=== PATIENT | female | born 1945 | race Caucasian/White ===

== ENCOUNTER → 2017-07-04 | Day surgery (SDC) | payer OTHER, BC ==
[2017-06-20 14:12] VITALS: Ht 167.6 cm; Wt 134.1 kg
[~2017-07-04] VITALS: Ht 167.6 cm; Wt 134.1 kg
[~2017-07-04] MED LIST: ASPI1TAB2 PO; ATEN-171 PO; CARB25TA12 PO; CHOL1000 PO; CRAN450T3 PO; FLAX100024 PO; LIDOCAINE HCL 2% 2 ML VIAL (20MG/ML) ONE; MULT-506 PO; NUTRIFERON PO; POTA-65 PO; PROPOFOL IV EMULSION 10 MG/ML 20 ML VIAL ONE; SULF500T35 PO; [UNRECOGNIZED DRUG - CODE] PO; [UNRECOGNIZED DRUG - OTHER] PO
--- NOTE | 2017-07-04 12:17 | Endo History and Physical ---
History & Physical Date of Service: July 04, 2017. Chief Complaint: Ulcerative colitis Referring Physician: Dr. Cristina Galvez History of Present Illness For colonoscopy Past Surgical History Hx Cardiac Surgery: No Hx Internal Defibrillator: No Hx Pacemaker: No Hx Abdominal Surgery: Yes (Ovarian Cyst Removal) Hx of Implantable Prosthesis: No Hx Cancer Surgery: Yes (R LUMPECTOMY, BILT MASECTOMY) Hx Thoracic Surgery: No Hx Orthopedic: No Hx Urinary Tract Surgery: No Family History None Social History Smoking Status: Former Smoker Hx Substance Use: No Hx Alcohol Use: No Allergies Coded Allergies: Morphine (Verified Allergy, Severe, ANAPHYLAXIS, 06/20/17) Ibuprofen (Verified Allergy, Intermediate, Triggers Ulcerative Colitis, 06/20/17) Penicillins (Verified Allergy, Intermediate, Rash, 06/20/17) Adhesives (Verified Adverse Reaction, Mild, RASH, 06/20/17) Current Medications Reported Home Medications Medications Dose Route/Sig Max Daily Dose Days Date Category Dose Instructions Vitamin D3 (Cholecalciferol) 1,000 Unit Tab 1 Tab PO DAILY 30 06/20/17 Reported Sinemet 25MG/100MG (Carbidopa/Levodopa) Tab 2 Tab PO TID 06/20/17 Reported Potassium Chloride ER (Potassium Chloride) 20 Meq Tab 1 Tab PO DAILY 06/20/17 Reported [Nutriferon] 2 Cap PO DAILY 06/20/17 Reported Azo-Cranberry (Cranberry (Vaccinium Macrocarp) 450 Mg Tab 1 Tab PO DAILY 12/02/12 Reported Multivitamin (Multivitamins) Tab 1 Tab PO DAILY 12/02/12 Reported Osteo Bi-Flex/5-Loxin Adv (Soonzalct-Rxqrstkvmjj-Rvkjubc) 1 Tab Tab 1 Tab PO DAILY 12/02/12 Reported Flaxseed Oil (Flaxseed (Linseed)) 1,000 Mg Cap 1 Cap PO DAILY 12/02/12 Reported [Immunity Formula] 1 Cap PO DAILY 12/02/12 Reported Salomon Aspirin Ec Low Dose (Aspirin) 81 Mg Tab 1 Tab PO DAILY 12/02/12 Reported Tenoretic 50 Mg/25 Mg (Atenolol/Chlorthalidone) 50 Mg/25 Mg Tab 0.5 Tab PO DAILY 12/02/12 Reported TAKE 1/2 A TAB Sulfazine Ec (Sulfasalazine) 500 Mg Tabdr 500 Mg PO DAILY 12/02/12 Reported Vital Signs Weight (Kilograms): 134.09 Height (Feet): 5 Height (Inches): 6 Date Time Temp Pulse Resp B/P (MAP) Pulse Ox O2 Delivery O2 Flow Rate FiO2 07/04/17 12:14 36.6 89 20 176/87 (116) 96 Room Air Physical Exam General Appearance: + obese Respiratory/Chest: Respiratory effort: no dyspnea Cardiovascular: Heart Auscultation: RRR Abdomen: Inspection & Palpation: soft Assessment and Plan UC for colonoscopy
--- NOTE | 2017-07-04 12:55 | Discharge Instructions ---
Endoscopy Patient Instructions Date / Procedure(s) Performed July 04, 2017. Colonoscopy Allergy Information Coded Allergies: Morphine (Verified Allergy, Severe, ANAPHYLAXIS, 06/20/17) Ibuprofen (Verified Allergy, Intermediate, Triggers Ulcerative Colitis, 06/20/17) Penicillins (Verified Allergy, Intermediate, Rash, 06/20/17) Adhesives (Verified Adverse Reaction, Mild, RASH, 06/20/17) Discharge Date / Findings July 04, 2017. Diverticulosis, hemorrhoids Medication Instructions Stopped Medication(s): Patient was told to stop aspirin, and vitamins and minerals. Restart Stopped Medication(s): resume meds Reported Home Medications Medications Dose Route/Sig Max Daily Dose Days Date Category Dose Instructions Vitamin D3 (Cholecalciferol) 1,000 Unit Tab 1 Tab PO DAILY 30 06/20/17 Reported Sinemet 25MG/100MG (Carbidopa/Levodopa) Tab 2 Tab PO TID 06/20/17 Reported Potassium Chloride ER (Potassium Chloride) 20 Meq Tab 1 Tab PO DAILY 06/20/17 Reported [Nutriferon] 2 Cap PO DAILY 06/20/17 Reported Azo-Cranberry (Cranberry (Vaccinium Macrocarp) 450 Mg Tab 1 Tab PO DAILY 12/02/12 Reported Multivitamin (Multivitamins) Tab 1 Tab PO DAILY 12/02/12 Reported Osteo Bi-Flex/5-Loxin Adv (Tshhykntw-Hmwrzdtptjd-Qzxelry) 1 Tab Tab 1 Tab PO DAILY 12/02/12 Reported Flaxseed Oil (Flaxseed (Linseed)) 1,000 Mg Cap 1 Cap PO DAILY 12/02/12 Reported [Immunity Formula] 1 Cap PO DAILY 12/02/12 Reported Salomon Aspirin Ec Low Dose (Aspirin) 81 Mg Tab 1 Tab PO DAILY 12/02/12 Reported Tenoretic 50 Mg/25 Mg (Atenolol/Chlorthalidone) 50 Mg/25 Mg Tab 0.5 Tab PO DAILY 12/02/12 Reported TAKE 1/2 A TAB Sulfazine Ec (Sulfasalazine) 500 Mg Tabdr 500 Mg PO DAILY 12/02/12 Reported Provider Instructions Activity Restrictions - No exercising or heavy lifting for 24 hours. - Do not drink alcohol the day of the procedure. - Do not drive a car or operate machinery until the day after the procedure. - Do not make any important decisions or sign important papers in 24 hours after the procedure. Following Day: - Return to full activity which may include returning to work/school. Diet Start your diet with liquids and light foods (jello, soup, juice, toast). Then eat your usual diet if not nauseated. Treatment For Common After Affects For mild abdominal pain, bloating, or excessive gas: - Rest - Eat lightly - Lie on right side Follow-Up Information Follow-up with Dr. Cristina Galvez as scheduled Anesthesia Information What You Should Know You have had a procedure that required some medicine to reduce anxiety and discomfort. This treatment is called moderate sedation. After receiving the treatment, you may be sleepy, but you will be able to breathe on your own. The effects of the treatment may last for several hours. Follow these instructions along with Activity/Diet recommendations noted above: * Do NOT do anything where dizziness or clumsiness would be dangerous. * Rest quietly at home today, then you can be up and about tomorrow. * Have a responsible person stay with you the rest of today. * You may have had an I.V. today. If so, you may take the dressing off later today. Recommendations Call your doctor if: * Trouble breathing * Continuous vomiting for more than 24 hours * Temperature above 101 degrees * Severe abdominal pain or bloating * Pain not relieved by pain medicine ordered * There is increased drainage or redness from any incision * A large amount of rectal bleeding greater than 2-3 tablespoons. (If you had a polyp/s removed or have hemorrhoids, a small amount of blood - from the rectum is to be expected.) * You have any unanswered questions or concerns. IN THE EVENT OF A SERIOUS EMERGENCY, GO TO THE NEAREST EMERGENCY ROOM Your discharge instructions were prepared by provider Ian Mccarty. Patient Instructions Signature Page Stephanie Pinzon Patient (or Guardian) Signature/Date: I have read and understand the instructions given to me by my caregivers. Caregiver/RN/Doctor Signature/Date: The above-named patient and/or guardian has received patient instructions on this date. + Original Patient Signature Page (only) stays with chart. Please make copy for patient.
--- NOTE | 2017-07-04 13:00 | GI REPORT ---
Patient Name: Stephanie Pinzon Procedure Date: 07/04/2017 12:14 PM Date of : 1945 Admit Type: Outpatient Age: 72 Gender: Female Attending MD: Ian Mccarty MD Procedure: Colonoscopy Providers: Ian Mccarty MD Referring MD: Cristina Silva Indications: Follow-up of chronic ulcerative pancolitis Medicines: Propofol total dose 550 mg IV, Lidocaine 40 mg IV Complications: No immediate complications. Estimated Blood Loss: Estimated blood loss was minimal. Procedure: Pre-Anesthesia Assessment: - Prior to the procedure, a History and Physical was performed, and patient medications, allergies and sensitivities were reviewed. The patient's tolerance of previous anesthesia was reviewed. - The risks and benefits of the procedure and the sedation options and risks were discussed with the patient. All questions were answered and informed consent was obtained. After I obtained informed consent, the scope was passed under direct vision. Throughout the procedure, the patient's blood pressure, pulse, and oxygen saturations were monitored continuously. The scope was introduced through the anus and advanced to the cecum, identified by appendiceal orifice and ileocecal valve. The colonoscopy was performed without difficulty. The patient tolerated the procedure well. The quality of the bowel preparation was good. Findings: Multiple diverticula were found in the entire colon. The cecum appeared normal. Biopsies were taken with a cold forceps for histology. The ascending colon appeared normal. Biopsies were taken with a cold forceps for histology. The hepatic flexure appeared normal. Biopsies were taken with a cold forceps for histology. The transverse colon appeared normal. Biopsies were taken with a cold forceps for histology. The splenic flexure appeared normal. Biopsies were taken with a cold forceps for histology. The descending colon appeared normal. Biopsies were taken with a cold forceps for histology. The sigmoid colon appeared normal. Biopsies were taken with a cold forceps for histology. The rectum appeared normal. Biopsies were taken with a cold forceps for histology. External hemorrhoids were found during perianal exam. The hemorrhoids were moderate. Impression: - Diverticulosis in the entire examined colon. - The cecum is normal. Biopsied. - The ascending colon is normal. Biopsied. - The hepatic flexure is normal. Biopsied. - The transverse colon is normal. Biopsied. - The splenic flexure is normal. Biopsied. - The descending colon is normal. Biopsied. - The sigmoid colon is normal. Biopsied. - The rectum is normal. Biopsied. - External hemorrhoids. Recommendation: - Discharge patient to home (ambulatory). - Continue present medications. - Await pathology results. - Return to primary care physician PRN. Ian Mccarty M.D. Ian Mccarty MD 07/04/2017 1:00:21 PM This report has been signed electronically. Note Initiated On: 07/04/2017 12:14 PM Number of Addenda: 0 I attest to the content of the Intraoperative Record and orders documented therein, exceptions below {[id number]}
[2017-07-04 13:28] VITALS: BP 167/88; PULSE 77; O2SAT 97
--- NOTE | 2017-07-04 13:38 | Anesthesiology Progress Note ---
Anesthesia Post Op Note Date & Time July 04, 2017 at 13:38 Vital Signs Pain Intensity: 0 Vital Signs Past 12 Hours Date Time Temp Pulse Resp B/P (MAP) Pulse Ox O2 Delivery O2 Flow Rate FiO2 07/04/17 13:28 77 20 167/88 (114) 97 Room Air 07/04/17 13:13 67 20 147/88 (107) 98 Room Air 07/04/17 12:58 36.7 66 16 155/77 (103) 98 Room Air 07/04/17 12:14 36.6 89 20 176/87 (116) 96 Room Air Notes Mental Status: alert / awake / arousable, participated in evaluation Pt Amnestic to Procedure: Yes Nausea / Vomiting: adequately controlled Pain: adequately controlled Airway Patency, RR, SpO2: stable & adequate BP & HR: stable & adequate Hydration State: stable & adequate Anesthetic Complications: no major complications apparent
== END | disposition home or self-care (01) ==
LOC: C.GI 11:45
PROVIDERS: ATTEND Internal Medicine Gastroenterology
DX: K51.00 Ulcerative (chronic) pancolitis without complications (principal); K57.30 Diverticulosis of large intestine without perforation or abscess without bleeding; I10 Essential (primary) hypertension; G20 Parkinson's disease; Z88.0 Allergy status to penicillin; Z88.5 Allergy status to narcotic agent; Z88.6 Allergy status to analgesic agent; Z87.891 Personal history of nicotine dependence

== ENCOUNTER 2021-03-11 00:58 | Observation (INO) ==
--- NOTE | 2021-03-11 01:14 | Emergency Department Note ---
Impression & Plan Acute GI bleeding Admit to the [facility] service ED Provider Note NAME: AJ LEE AGE: 75 SEX: F ARRIVES VIA: Ambulance INFORMANT: Patient ED PROVIDER(S): Janet Child DO CHIEF COMPLAINT: GI bleeding PLAN: Disposition: Admit to the [facility] Condition: Guarded MEDICAL DECISION MAKING: This is a 75-year-old female patient who presents to the emergency department with an urgency to have a bowel movement and passing dark blood clots per rectum. Patient has a history of colitis but not such significant GI bleeding. The patient had additional episodes of both bright red blood per rectum as well as melena. She also passed clots. She remains hemodynamically stable. Her hemoglobin is stable at this time. CT scan shows evidence of both colitis and diverticulitis according to [employer]. I discussed the case with the [facility] service and they will evaluate for further management. Triage Nursing notes reviewed and agree with them. Vital Signs: reviewed and remarkable for hypertension Differential diagnosis: Upper GI bleed, colitis, diverticulitis, anemia Diagnostics interpreted by me: ECG: Normal sinus rhythm at a rate of 82 with a first-degree AV block. This has a poor baseline. However, there is no ST segment elevation or signs of ischemia. There is no ectopy. Cardiac Monitoring: Normal sinus rhythm at a rate of 79 Laboratory studies: See below Imaging studies: As per stat rad CT Abdomen/Pelvis: There is mild colonic wall thickening involving a loop of sigmoid colon in the left lower quadrant with mild engorgement of the adjacent mesenteric vessels, raising the possibility of early colitis versus diverticulitis. Numerous colonic diverticula are visualized throughout the colon. No drainable fluid collection or free air visualized in the abdomen or pelvis. Unremarkable appendix. Bilateral renal cysts. No hydronephrosis. The liver, spleen, adrenal glands and biliary tree are grossly unremarkable. Mild diffuse pancreatic atrophy HPI: 75/F arrives for evaluation of GI bleed. Patient presents to the emergency department with weakness and rectal bleeding. Around 11:30 PM this evening, the patient had urgency to have a bowel movement. She states that she passed large dark-colored blood clots per rectum with a small amount of stool. She states that she has a history of colitis but typically would have diarrheal bowel movements that were streaked with blood but has not had that happen in some time. Patient had a colonoscopy 3 years ago which showed evidence of colitis and diverticulosis. ROS: See above HPI for pertinent positives & negatives. A total of 10 systems reviewed and were otherwise negative. PAST MEDICAL HISTORY:Hypertension, Parkinson's disease, osteoarthritis, breast cancer, colitis PAST SURGICAL HISTORY:See Below FAMILY HISTORY:See Below SOCIAL HISTORY:Patient lives with her . She does not smoke HOME MEDICATIONS:See list ALLERGIES:See list VITALS:See Below PHYSICAL EXAMINATION: HEENT: Head - normocephalic and atraumatic.Pupils are equal, round, and reactive to light. Extraocular eye muscles are intact, and sclera are anicteric. Nose - moist nasal mucosa without discharge. Mouth - moist buccal mucosa. Oropharynx is nonerythematous and there is no tonsillar exudate or edema noted. Neck: Supple; no JVD or cervical lymphadenopathy Heart: Regular rate and rhythm. There is a normal S1 and S2 with no murmurs, clicks, or gallops appreciated. Lungs: Clear to auscultation bilaterally with no wheezes, rales, or rhonchi. Abdomen: Soft, completely nontender, mildly distended, with good bowel sounds. There are no palpable pulsatile masses or hepatosplenomegaly. There is no guarding, rigidity, or rebound noted. Extremities: No evidence of cyanosis, clubbing, or edema. There are easily palpable peripheral pulses. Skin: Pale, warm and dry with good turgor and no rashes. ED COURSE: Times/Reassessments: 0100: The patient was evaluated in room B6. A complete history and physical was performed. Laboratory studies were drawn as above. An order was placed for continuous cardiac monitoring. The patient was in a normal sinus rhythm at a rate of 79. She was slightly hypertensive. The patient was typed and screened. She went for CT scan of the abdomen/pelvis as described above. Patient had a significant bowel movement with moderate to significant amount of melena. Patient's vitals remained stable. COVID testing was obtained and was negative. [facility] and they will evaluate for further management. Janet Child DO Past Med/Surg History Surgical History History of mastectomy Family History Father Mother Diverticulitis Heart problem Brother COPD (chronic obstructive pulmonary disease) Heart failure Rheumatoid arthritis Sister Arthritis History of hysterectomy Grandmother (Paternal) Diabetes Grandmother (Maternal) Cancer Grandfather (Maternal) Cancer Social History Smoking Status: Former smoker Tobacco Type: Cigarettes Feels Safe at Home: Yes Allergies Allergies Allergy/AdvReac Type Severity Reaction Status Date / Time morphine Allergy Severe ANAPHYLAXIS Verified 03/11/21 01:33 ibuprofen Allergy Intermediate Triggers Verified 03/11/21 01:33 Ulcerative Colitis Penicillins Allergy Intermediate Rash Verified 03/11/21 01:33 adhesive AdvReac Mild RASH Verified 03/11/21 01:33 Home Meds Home Medications Medication Instructions Recorded Confirmed flaxseed oil 1,000 mg capsule 1,000 mg PO DAILY 01/22/19 03/11/21 multivitamin with minerals 1 tab PO DAILY 01/22/19 03/11/21 (Multiple Vitamin-Minerals) sulfasalazine 500 mg tablet 500 mg PO DAILY 01/22/19 03/11/21 aspirin 81 mg chewable tablet 81 mg PO DAILY 03/11/21 03/11/21 atenolol 50 mg tablet 50 mg PO DAILY 03/11/21 03/11/21 carbidopa 25 mg-levodopa 100 mg 2 tab PO AC 03/11/21 03/11/21 tablet cranberry 500 mg capsule 500 mg PO DAILY 03/11/21 03/11/21 glucosamine-chondroitin 250 mg-200 1 tab PO DAILY 03/11/21 03/11/21 mg tablet (Osteo Bi-Flex) potassium chloride 10 mEq 10 meq PO BID 03/11/21 03/11/21 capsule,extended release Results & Data (ED) Vital Signs Vital Signs - 24 hr 03/11/21 01:06 03/11/21 01:25 03/11/21 02:10 Temperature 37.8 C H Temperature Source Oral Pulse Rate 82 79 Pulse Rate [Apical] 86 Pulse Rhythm [Apical] Pulse Strength [Apical] Respiratory Rate 21 24 Respiratory Effort / Characteristics Non-Labored Respiratory Depth Normal Respiratory Pattern Blood Pressure 201/128 H Blood Pressure [Left Arm] 191/98 H Blood Pressure Mean 152 Blood Pressure Mean [Left Arm] 129 Blood Pressure Position [Left Arm] Pulse Oximetry 95 95 Oxygen Delivery Method Room Air Room Air Sepsis Recent Fever Within 48 Hours Yes Sepsis New/Unexplained Change in Mental Status No Sepsis Action Taken by Nursing No Action Required 03/11/21 04:00 Temperature Temperature Source Pulse Rate Pulse Rate [Apical] 72 Pulse Rhythm [Apical] Regular Pulse Strength [Apical] Normal Respiratory Rate 16 Respiratory Effort / Characteristics Non-Labored Spontaneous Respiratory Depth Normal Respiratory Pattern Regular Blood Pressure Blood Pressure [Left Arm] 158/103 H Blood Pressure Mean Blood Pressure Mean [Left Arm] 121 Blood Pressure Position [Left Arm] Semi-fowlers Pulse Oximetry 96 Oxygen Delivery Method Room Air Sepsis Recent Fever Within 48 Hours Sepsis New/Unexplained Change in Mental Status Sepsis Action Taken by Nursing Laboratory Data Result diagrams: 03/11/21 04:24 03/11/21 01:00 Lab Results 03/11/21 03/11/21 03/11/21 Range/Units 01:00 01:00 01:00 WBC 9.77 (4.8-10.8) K/uL RBC 4.34 (4.2-5.4) M/uL Hgb 12.8 (12.0-16.0) g/dL Hct 40.0 (37-47) % MCV 92.2 (80-100) fL MCH 29.5 (25-34) pg MCHC 32.0 (32-36) g/dL RDW Std Deviation 50.1 H (36.4-46.3) fL RDW Coeff of Laith 14.7 H (11.5-14.5) % Plt Count 183 (130-400) K/uL MPV 11.2 H (7.4-10.4) fL Immature Gran % (Auto) 0.3 % Neut % (Auto) 58.6 % Lymph % (Auto) 31.4 % Boyd % (Auto) 8.0 % Eos % (Auto) 1.4 % Baso % (Auto) 0.3 % Neut # (Auto) 5.72 (1.4-6.5) K/uL Lymph # (Auto) 3.07 (1.2-3.4) K/uL Boyd # (Auto) 0.78 H (0.11-0.59) K/uL Eos # (Auto) 0.14 (0-0.5) K/uL Baso # (Auto) 0.03 (0-0.2) K/uL Immature Gran # (Auto) 0.03 H (0.00-0.02) K/uL PT 9.8 (9.0-12.0) Seconds INR 1.0 (0.9-1.1) APTT 27.3 (21.0-31.0) Seconds PTT Ratio 1.0 Sodium 141 (136-145) mmol/L Potassium 3.7 (3.5-5.1) mmol/L Chloride 106 (98-107) mmol/L Carbon Dioxide 28 (21-32) mmol/L Anion Gap 7 (3-11) BUN 18 (6-23) mg/dl Creatinine 0.63 (0.6-1.2) mg/dl Est Cr Clr Drug Dosing 102.9 ml/min Est GFR ( Amer) 103.1 ml/min Est GFR (Non-Af Amer) 89.0 ml/min BUN/Creatinine Ratio 28.6 H (10-20) Glucose 117 H (70-99(Fasting)) mg/dl Calcium 9.0 (8.5-10.1) mg/dl Total Bilirubin 0.4 (0.2-1.0) mg/dl AST 14 (13-39) U/L ALT 4 L (7-52) U/L Alkaline Phosphatase 78 (34-104) U/L Total Protein 7.1 (6.0-8.3) gm/dl Albumin 3.9 (3.4-5.0) gm/dl Globulin 3.2 (2.5-4.0) gm/dl Albumin/Globulin Ratio 1.2 (0.9-2) SARS-CoV-2, RNA, NAAT (NEGATIVE) Blood Type Antibody Screen 03/11/21 03/11/21 03/11/21 Range/Units 02:11 02:12 04:24 WBC (4.8-10.8) K/uL RBC (4.2-5.4) M/uL Hgb 12.0 (12.0-16.0) g/dL Hct 37.4 (37-47) % MCV (80-100) fL MCH (25-34) pg MCHC (32-36) g/dL RDW Std Deviation (36.4-46.3) fL RDW Coeff of Laith (11.5-14.5) % Plt Count (130-400) K/uL MPV (7.4-10.4) fL Immature Gran % (Auto) % Neut % (Auto) % Lymph % (Auto) % Boyd % (Auto) % Eos % (Auto) % Baso % (Auto) % Neut # (Auto) (1.4-6.5) K/uL Lymph # (Auto) (1.2-3.4) K/uL Boyd # (Auto) (0.11-0.59) K/uL Eos # (Auto) (0-0.5) K/uL Baso # (Auto) (0-0.2) K/uL Immature Gran # (Auto) (0.00-0.02) K/uL PT (9.0-12.0) Seconds INR (0.9-1.1) APTT (21.0-31.0) Seconds PTT Ratio Sodium (136-145) mmol/L Potassium (3.5-5.1) mmol/L Chloride (98-107) mmol/L Carbon Dioxide (21-32) mmol/L Anion Gap (3-11) BUN (6-23) mg/dl Creatinine (0.6-1.2) mg/dl Est Cr Clr Drug Dosing ml/min Est GFR ( Amer) ml/min Est GFR (Non-Af Amer) ml/min BUN/Creatinine Ratio (10-20) Glucose (70-99(Fasting)) mg/dl Calcium (8.5-10.1) mg/dl Total Bilirubin (0.2-1.0) mg/dl AST (13-39) U/L ALT (7-52) U/L Alkaline Phosphatase (34-104) U/L Total Protein (6.0-8.3) gm/dl Albumin (3.4-5.0) gm/dl Globulin (2.5-4.0) gm/dl Albumin/Globulin Ratio (0.9-2) SARS-CoV-2, RNA, NAAT NEGATIVE (NEGATIVE) Blood Type O Negative Antibody Screen NEGATIVE Administered Medications Ciprofloxacin (Cipro / D5w) 400 mg in 200 mls @ 100 mls/hr IV Q12H [facility]; Protocol Stop: 03/21/21 03:40 Last Admin: 03/11/21 03:49 Dose: 100 mls/hr Documented by: [id number] Sodium Chloride (Nss 1000ml) 1,000 mls @ 999 mls/hr IV .Q1H1M ONE Stop: 03/11/21 04:59 Last Admin: 03/11/21 04:13 Dose: 999 mls/hr Documented by: [id number] Discontinued Medications Ioversol (Optiray 320 100ml) 96 ml IV ONCE ONE Stop: 03/11/21 02:10 Last Admin: 03/11/21 02:10 Dose: 96 ml Documented by: [id number] Discharge Plan Visit Data Chief Complaint: Rectal Bleed Stated Complaint: BLOOD IN STOOL ED Provider: Janet Chlid Discharge Problem: Acute GI bleeding Forms Stand Alone Forms: [facility] [place] Lat49 Prescriptions Prescriptions: No Action flaxseed oil 1,000 mg capsule 1,000 mg PO DAILY RF: 0 multivitamin with minerals [Multiple Vitamin-Minerals] tablet 1 tab PO DAILY RF: 0 sulfasalazine 500 mg tablet 500 mg PO DAILY RF: 0 aspirin 81 mg Tablet,Chewable 81 mg PO DAILY RF: 0 carbidopa-levodopa 25-100 mg tablet 2 tab PO AC RF: 0 potassium chloride 10 mEq capsule, extended release 10 meq PO BID RF: 0 atenolol 50 mg tablet 50 mg PO DAILY RF: 0 cranberry 500 mg Capsule 500 mg PO DAILY RF: 0 glucosamine-chondroitin [Osteo Bi-Flex] 250-200 mg Tablet 1 tab PO DAILY RF: 0 Referrals Referrals: Cristina Silva MD [Primary Care Provider] -
[2021-03-11 01:25] LABS: Basophils # (auto) 0.03 K/uL (0-0.2); Basophils % (auto) 0.3 %; Eosinophils # (auto) 0.14 K/uL (0-0.5); Eosinophils % (auto) 1.4 %; Hemoglobin 12.8 g/dL (12.0-16.0); Immature Granulocytes # (auto) 0.03 K/uL (0.00-0.02); Immature Granulocytes % (auto) 0.3 %; Lymphocytes # (auto) 3.07 K/uL (1.2-3.4); Lymphocytes % (auto) 31.4 %; Mean Corpuscular Hemoglobin 29.5 pg (25-34); Mean Corpuscular Volume 92.2 fL (80-100); Mean Platelet Volume 11.2 fL (7.4-10.4); Monocytes # (auto) 0.78 K/uL (0.11-0.59); Neutrophils # (auto) 5.72 K/uL (1.4-6.5); Neutrophils % (auto) 58.6 %; Platelet Count 183 K/uL (130-400); RDW Coefficient of Variation 14.7 % (11.5-14.5); RDW Standard Deviation 50.1 fL (36.4-46.3); Red Blood Count 4.34 M/uL (4.2-5.4); White Blood Count 9.77 K/uL (4.8-10.8)
[2021-03-11 01:35] LABS: Albumin Globulin Ratio 1.2 (0.9-2); Albumin Level 3.9 gm/dl (3.4-5.0); BUN Creatinine Ratio 28.6 (10-20); Bilirubin,Total 0.4 mg/dl (0.2-1.0); Creatinine Clr Calc Pharmacy 102.9 ml/min; Est GFR (African American) 103.1 ml/min; Globulin 3.2 gm/dl (2.5-4.0); Potassium 3.7 mmol/L (3.5-5.1); Total Protein 7.1 gm/dl (6.0-8.3)
[2021-03-11 01:40] LABS: Partial Thromboplastin Time 27.3 Seconds (21.0-31.0); Prothrombin Time 9.8 Seconds (9.0-12.0)
[2021-03-11] MEDS ORDERED: OPTIRAY 320 100ml IV ONE (02:09)
[2021-03-11] MEDS ORDERED: CIPROFLOXACIN / D5W 400 MG/200 ML BAG IV SCH (03:41)
--- NOTE | 2021-03-11 03:43 | History & Physical Report ---
Date of Service March 11, 2021 Assessment & Plan (1) Acute GI bleeding: (2) Colitis: (3) Parkinson's disease: (4) Hypertension: Plan: 75 yo F Hx Parkinson's disease, HTN, obesity, diverticulosis admitted for diverticulitis and acute lower GI bleed. GI bleed, diverticulitis: Presented to the ER with abdominal discomfort/fullness and several episodes of bloody diarrhea. Noted to have large volume bloody diarrhea while in ER. Hgb on admission of 12.8; repeat ordered given several episodes of bloody diarrhea. CTAP noted to have mild diverticulitis/colitis, otherwise normal. GI consulted and appreciate recommendations. NPO at this time in the event of intervention, though suspect no colonoscopy at this time given risk of perforation. Patient has allergy to penicillins and Flagyl IV not available due to shortage. Cipro 400mg IV BID, Flagyl 500 mg PO TID ordered. Holding aspirin. Serial H/H ordered. HTN: Continue atenolol. Parkinson's disease: Continue carbidopa/levodopa. Code Status: FULL CODE FEN: NPO DVT ppx: SCDs, holding chemoprophylaxis given acute GIB Dispo: Telemetry History of Present Illness Chief Complaint: bloody diarrhea Primary Care Provider: Cristina Silva MD 75 yo F Hx Parkinson's disease, HTN, obesity, diverticulosis presents for several episodes of bloody diarrhea starting this evening. She denies SOB, chest pain, nausea, vomiting. Has not had bloody diarrhea like this in the past. In the ER patient noted to be hypertensive, temp 37.8 C. Hgb normal at 12.8, BMP normal, COVID 19 negative. CTAP showed mild diverticulitis vs. colitis. Given several large volume bloody BMs, hospitalist service was consulted for admission. Allergies Allergy/AdvReac Type Severity Reaction Status Date / Time morphine Allergy Severe ANAPHYLAXIS Verified 03/11/21 01:33 ibuprofen Allergy Intermediate Triggers Verified 03/11/21 01:33 Ulcerative Colitis Penicillins Allergy Intermediate Rash Verified 03/11/21 01:33 adhesive AdvReac Mild RASH Verified 03/11/21 01:33 Home Medications Medication Instructions Recorded Confirmed Type flaxseed oil 1,000 mg capsule 1,000 mg PO DAILY 01/22/19 03/11/21 History multivitamin with minerals 1 tab PO DAILY 01/22/19 03/11/21 History (Multiple Vitamin-Minerals) sulfasalazine 500 mg tablet 500 mg PO DAILY 01/22/19 03/11/21 History aspirin 81 mg chewable tablet 81 mg PO DAILY 03/11/21 03/11/21 History atenolol 50 mg tablet 50 mg PO DAILY 03/11/21 03/11/21 History carbidopa 25 mg-levodopa 100 mg 2 tab PO AC 03/11/21 03/11/21 History tablet cranberry 500 mg capsule 500 mg PO DAILY 03/11/21 03/11/21 History glucosamine-chondroitin 250 mg-200 1 tab PO DAILY 03/11/21 03/11/21 History mg tablet (Osteo Bi-Flex) potassium chloride 10 mEq 10 meq PO BID 03/11/21 03/11/21 History capsule,extended release Past Med/Surg History Surgical History History of mastectomy Family History Father Mother Diverticulitis Heart problem Brother COPD (chronic obstructive pulmonary disease) Heart failure Rheumatoid arthritis Sister Arthritis History of hysterectomy Grandmother (Paternal) Diabetes Grandmother (Maternal) Cancer Grandfather (Maternal) Cancer Social History Smoking Status: Former smoker Tobacco Type: Cigarettes Hx Alcohol Use: No Hx Substance Use: No Preferred Language: Azeri Communication Ability: Effective Reducer Required: No Beliefs That Will Affect Care: None Current Living Situation: Spouse Other Information That Helps Us Care for You: No Feels Safe at Home: Yes Safety Concerns: Feels Safe At This Time Assistive Devices: None and Glasses Review of Systems Review of Systems: All systems reviewed & are unremarkable except as noted in HPI & below Constitutional: + malaise; no fever and no chills Respiratory: no cough and no dyspnea Cardiovascular: no chest pain, no palpitations and no edema Gastrointestinal: + diarrhea/loose stools and + blood in stools; no abdominal pain and no constipation Genitourinary: no dysuria and no hematuria Physical Exam 2 Constitutional: WD/WN, vitals as above obese Eyes: PERRL, conjunctivae normal, anicteric sclerae ENMT: external ear and nose normal, oropharynx normal Neck: normal visual inspection Respiratory: normal respiratory effort, lungs clear to auscultation Cardiovascular: RRR, no murmur, no edema Gastrointestinal (Abdomen): hyperactive bowel sounds abdomen mild diffuse tenderness to palpation, no rebound or guarding Musculoskeletal: no cyanosis or clubbing, extremities motor strength 5/5 Skin: no rashes, warm and dry Neurologic: AAOx3, normal speech. Bilateral UE, LE, and face without sensory or motor deficits Resting tremor in hands. Psychiatric: A+Ox3, euthymic affect Results & Data Results & Data ([facility]) Vital Signs (Past 12 Hours) Vital Signs Temp Pulse Pulse Resp BP BP Pulse Ox 03/11/21 02:10 86 191/98 H 03/11/21 01:25 79 24 95 03/11/21 01:06 37.8 C H 82 21 201/128 H 95 Code Status & VTE Plan VTE Prophylaxis Plan VTE Prophylaxis will be ordered: Yes Supervising Physician Co-Signing Physician Notes Attending addendum: I have physically seen this patient, have supervised the medical residents activities, and agree with the H&P unless as otherwise noted. Assessment and Plan: GI bleed/colitis/diverticulitis- While in ED patient had large bloody bowel movement Repeat H&H now, with initial being 12.8 H&H every 6 hours N.p.o. Stool PCR, hold antibiotics until results come back negative IV fluids Hold aspirin and flaxseed oil. Do not place on antiplatelet agents or anticoagulation agents Hypertension- Continue atenolol with hold parameters Remaining orders and notations as noted Resident Activity Tracking Resident Involvement: Resident Care Provided Care Provided: Adult Hospital Medicine
[2021-03-11] MEDS ORDERED: SODIUM CHLORIDE 0.9% 1000ML 1,000 ML IV ONE (03:59)
[2021-03-11 04:34] LABS: Hematocrit (blood only) 37.4 % (37-47)
[2021-03-11] MEDS ORDERED: ACETAMINOPHEN 325 MG TAB PO PRN (06:09)
[2021-03-11] MEDS ORDERED: ONDANSETRON INJ 2 MG/ML 2 ML VIAL IV PRN (06:09)
--- NOTE | 2021-03-11 06:56 | CT Scan Report ---
CT SCAN OF THE ABDOMEN AND PELVIS WITH IV CONTRAST CLINICAL HISTORY: Generalized abdominal pain. COMPARISON STUDY: No priors. TECHNIQUE: Following the IV administration of 96 cc of Optiray 320, CT scan of the abdomen and pelvi s is performed from the lung bases to the proximal femora. Images are reviewed in the axial, sagittal , and coronal planes. IV contrast was administered without complication. A dose lowering technique wa s utilized adhering to the principles of ALARA. CT DOSE: 1766.65 mGy.cm FINDINGS: Lung bases: The heart is normal in size and without pericardial effusion. The lung bases are clear no ting bibasilar scarring/atelectasis. Findings suggest previous bilateral mastectomy. A tiny hiatal he rnia is noted. Liver: The contrast-enhanced liver is normal in size, contour, and attenuation. There is no intrahepa tic biliary ductal dilatation. The hepatic veins and portal veins are patent. Gallbladder: Unremarkable. Spleen: Normal in size and attenuation. An indeterminant 1.8 cm hypodensity in the spleen seen on anish ge #84 is statistically of low suspicion. Pancreas: Atrophic and grossly unremarkable. Adrenal glands: Unremarkable. Kidneys: The contrast enhanced kidneys demonstrate cortical atrophy and are without hydronephrosis. T he kidneys enhance symmetrically. A 2.4 cm exophytic cyst arises from the right lower pole. Abdominal vasculature: The abdominal aorta is normal in course and caliber noting moderate to advance d atherosclerotic calcification. Bowel: No bowel obstruction is identified. There is advanced colonic diverticulosis without clear CT evidence of acute diverticulitis. There is wall thickening seen throughout the sigmoid colon with num erous pericolonic lymph nodes. A duodenal diverticulum is noted. The appendix is well-visualized and normal. Peritoneum: There is no intraperitoneal free air or abdominal ascites. There is a fat-containing umbi lical hernia. Lymphadenopathy: None. Pelvic viscera: The bladder is decompressed and appears circumferentially thick walled. There is a ti ny foci of intraluminal gas. The endometrium appears thickened for age, measuring up to 11 mm. No adn exal lesion is seen. Skeletal structures: The skeletal structures are osteopenic. There is mild to moderate lumbosacral sp ondylosis. No lytic or blastic lesions are seen. IMPRESSION: 1. There is advanced colonic diverticulosis without CT evidence of acute diverticulitis. 2. There is a long segment of wall thickening involving the proximal sigmoid colon with no significan t surrounding inflammation. There are numerous small pericolonic lymph nodes, and this may be related to chronic diverticular disease. A mild nonspecific colitis is considered less likely. If not recent ly performed, follow-up with colonoscopy is recommended for further assessment. 3. The bladder is decompressed and appears circumferentially thick walled. Correlate with urinalysis. 4. The endometrium appears thickened for age measuring up to 11 mm. This is not well assessed by CT a nd nonemergent follow-up with gynecology and pelvic ultrasound is recommended. 5. Additional findings as above. ACT 112: Positive. There are findings on this exam that require communication between the performing entity and the patient following Patient Test Result Information Act ([place] Act 112) guidelines. Electronically signed by: Simone Goodman M.D. 03/11/2021 6:55 AM
--- NOTE | 2021-03-11 07:40 | Electrocardiogram Report ---
Test Reason : Blood Pressure : / mmHG Vent. Rate : 082 BPM Atrial Rate : 082 BPM P-R Int : 222 ms QRS Dur : 082 ms QT Int : 398 ms P-R-T Axes : 056 010 031 degrees QTc Int : 464 ms Poor data quality, interpretation may be adversely affected Sinus rhythm with 1st degree A-V block Otherwise normal ECG No previous ECGs available Confirmed by Norberto Walters ([id number]) on 03/11/2021 7:40:00 AM Referred By: REFERRED SELF Confirmed By:Luis Enrique Walters
[2021-03-11] MEDS: metroNIDAZOLE 500 MG TAB PO SCH ×3 (08:51→20:08)
[2021-03-11] MEDS: CARBIDOPA/LEVODOPA 25/100MG TAB PO SCH ×3 (08:51→16:15)
[2021-03-11] MEDS: sulfaSALAzine 500 MG TABLET PO SCH (08:52)
[2021-03-11] MEDS: POTASSIUM CHLORIDE 10 MEQ TABCR PO SCH ×2 (08:52→20:08)
[2021-03-11] MEDS ORDERED: ATENOLOL 50 MG TABLET PO SCH (09:00)
[2021-03-11] MEDS ORDERED: metroNIDAZOLE 500 MG TAB PO SCH (09:00)
[2021-03-11 09:59] LABS: Estimated Average Glucose 105 mg/dl; Hemoglobin A1C 5.3 % (4.5-5.6)
--- NOTE | 2021-03-11 14:57 | Gastrointestinal Consultation ---
Date of Consultation March 11, 2021 Assessment & Plan (1) Acute GI bleeding: likely diverticular bleeding vs. hemorrhoids or other cause recs: --trend H/H, transfuse prn hgb <7 --will need colonoscopy to further evaluate especially given CT findings, likely as an outpatient; however if she is still an inpatient can do it early next week on 03/14 perhaps supportive care, avoid NSAIDS Thank you for allowing me to participate in the care of this patient History of Present Illness Attending Physician: Thien Parson DO History of Present Illness 75 yo female with hx Parkinson's disease, obesity, diverticulosis here with bloody diarrhea. first time this has happened to her. Hgb is 12 now, bleeding has slowed down today per patient. CT imaging shows diverticulosis and thickening of left colon at the sigmoid. labs reviewed. VSS Allergies Allergy/AdvReac Type Severity Reaction Status Date / Time morphine Allergy Severe ANAPHYLAXIS Verified 03/11/21 01:33 ibuprofen Allergy Intermediate Triggers Verified 03/11/21 01:33 Ulcerative Colitis Penicillins Allergy Intermediate Rash Verified 03/11/21 01:33 adhesive AdvReac Mild RASH Verified 03/11/21 01:33 Home Medications Medication Instructions Recorded Confirmed Type flaxseed oil 1,000 mg capsule 1,000 mg PO DAILY 01/22/19 03/11/21 History multivitamin with minerals 1 tab PO DAILY 01/22/19 03/11/21 History (Multiple Vitamin-Minerals) sulfasalazine 500 mg tablet 500 mg PO DAILY 01/22/19 03/11/21 History aspirin 81 mg chewable tablet 81 mg PO DAILY 03/11/21 03/11/21 History atenolol 50 mg tablet 50 mg PO DAILY 03/11/21 03/11/21 History carbidopa 25 mg-levodopa 100 mg 2 tab PO AC 03/11/21 03/11/21 History tablet cranberry 500 mg capsule 500 mg PO DAILY 03/11/21 03/11/21 History glucosamine-chondroitin 250 mg-200 1 tab PO DAILY 03/11/21 03/11/21 History mg tablet (Osteo Bi-Flex) potassium chloride 10 mEq 10 meq PO BID 03/11/21 03/11/21 History capsule,extended release Patient History Surgical History History of mastectomy Family History Father Mother Diverticulitis Heart problem Brother COPD (chronic obstructive pulmonary disease) Heart failure Rheumatoid arthritis Sister Arthritis History of hysterectomy Grandmother (Paternal) Diabetes Grandmother (Maternal) Cancer Grandfather (Maternal) Cancer Social History Smoking Status: Former smoker Tobacco Type: Cigarettes Hx Alcohol Use: No Hx Substance Use: No Preferred Language: Khmer Communication Ability: Effective Mobile Application Development Lead Required: No Beliefs That Will Affect Care: None Current Living Situation: Spouse Other Information That Helps Us Care for You: No Feels Safe at Home: Yes Safety Concerns: Feels Safe At This Time Assistive Devices: None and Glasses Review of Systems Constitutional: no fever, no chills and no weight loss Eyes: as per Subjective / HPI Ear, Nose, Mouth, Throat: as per Subjective / HPI Respiratory: no dyspnea and no dyspnea on exertion Cardiovascular: no chest pain and no palpitations Gastrointestinal: as per Subjective / HPI Musculoskeletal: no joint pain and no swelling Integumentary: no rash and no lesions Neurologic: no numbness and no paresthesia Psychiatric: no depression and no anxiety Endocrine: no fatigue Hematologic / Lymphatic: no easy bleeding and no easy bruising Physical Exam Constitutional: WD/WN, vitals as above Eyes: EOM intact bilaterally Neck: normal visual inspection Respiratory: normal respiratory effort, lungs clear to auscultation Cardiovascular: RRR, no murmur, no edema Gastrointestinal (Abdomen): Inspection/Auscultation: abdomen normal to inspection; abdomen not distended Percussion/Palpation: abdomen soft; abdomen nontender and no hepatosplenomegaly Musculoskeletal: Extremities: no cyanosis Gait: normal gait Skin: no rashes, warm and dry Neurologic: moves all extremities Psychiatric: A+Ox3, euthymic affect Results & Data ([facility]) Vital Signs (Past 12 Hours) Vital Signs Temp Pulse Pulse Resp BP BP Pulse Ox 03/11/21 12:05 36.6 C 67 15 131/81 97 03/11/21 08:09 36.5 C 92 H 14 184/82 H 95 03/11/21 07:32 101 H 03/11/21 07:03 100 H 03/11/21 06:14 37.0 C 100 H 18 153/89 H 99 03/11/21 06:09 37.0 C 100 H 18 153/89 H 99 03/11/21 05:16 37.8 C H 72 16 158/103 H 96 03/11/21 04:00 72 16 158/103 H 96 Pulse Ox 03/11/21 12:05 03/11/21 08:09 03/11/21 07:32 03/11/21 07:03 03/11/21 06:14 03/11/21 06:09 99 03/11/21 05:16 03/11/21 04:00 PG Care Time/CCT Total # of Minutes Spent Total Time Spent with Patient: Total time spent is greater than 50% in coordination of care (as documented) at patient's floor/unit and/or counseling patient: Coding Level of Care Code 18991 Initial Inpt Care Lvl 3 Diagnoses Acute GI bleeding K92.2
[2021-03-11] MEDS: CIPROFLOXACIN / D5W 400 MG/200 ML BAG IV SCH (16:15)
--- NOTE | 2021-03-11 17:35 | Hospitalist Progress Note ---
Date of Service March 11, 2021 Assessment & Plan (1) Acute GI bleeding: Plan: 75F with PMHx Parkinson's disease (on carbidopa/levodopa), hypertension, obesity, diverticulosis, who p/w bloody diarrhea and CT evidence of colitis vs diverticulitis Bloody diarrhea -Etiology unclear at this time, though likely colitis given patient's medical history (vs diverticulitis) -GI consulted, plan to perform colonoscopy on Saturday; [place] be [facility] [place] [facility] [place] by [facility] * N.p.o. * IV Cipro 400 mg twice daily * Flagyl 500 mg 3 times daily * Home sulfasalazine 500 mg daily * IV fluids Hypertension -Patient originally on atenolol 50 mg p.o. daily at home * Switch to metoprolol 50 mg p.o. daily (stop atenolol); will begin new regimen tomorrow. Parkinson's disease -Chronic; will manage as at home (on carbidopa/levodopa) -PT OT ordered Dispo: Med telemetry Code: Full code FEN/GI: Clear liquid DVT Prophylaxis: SCDs PT/OT: Ordered (2) Colitis: (3) Parkinson's disease: (4) Hypertension: Plan: 75 yo F Hx Parkinson's disease, HTN, obesity, diverticulosis admitted for diverticulitis and acute lower GI bleed. GI bleed, diverticulitis: Presented to the ER with abdominal discomfort/fullness and several episodes of bloody diarrhea. Noted to have large volume bloody diarrhea while in ER. Hgb on admission of 12.8; repeat ordered given several episodes of bloody diarrhea. CTAP noted to have mild diverticulitis/colitis, otherwise normal. GI consulted and appreciate recommendations. NPO at this time in the event of intervention, though suspect no colonoscopy at this time given risk of perforation. Patient has allergy to penicillins and Flagyl IV not available due to shortage. Cipro 400mg IV BID, Flagyl 500 mg PO TID ordered. Holding aspirin. Serial H/H ordered. HTN: Continue atenolol. Parkinson's disease: Continue carbidopa/levodopa. Code Status: FULL CODE FEN: NPO DVT ppx: SCDs, holding chemoprophylaxis given acute GIB Dispo: Telemetry Admission and Anticipated Discharge Date Admission Date: March 11, 2021 Supervising Physician Co-Signing Physician Notes I personally examined the patient and verified all navarrete points of history and exam, discussed case, and agree with decision making with Dr Levy bleeding apepars to be stopping - no bloody bm for quite a while vitals noted nad heent nc at mmm breathing unlabored no accessory muscles good effort lgi bleeding -?diverticular, ?UC, ?other -bleeding appears to have stopped / is stopping -for Cscope in near future otherwise as above Subjective Nerissa blair a 75-year-old female with a history of Parkinson's, hypertension, obesity, diverticulosis, ulcerative colitis (on sulfasalazine) who presented with two episodes of bloody diarrhea. She denied shortness of breath, chest pain, nausea/vomiting on admission. CT abdomen pelvis showed evidence of mild diverticulitis vs colitis. This morning, she reports having at three bowel movements today that were less bloody compared to her bloody stools prior to admission. She continues to denies shortness of breath, nausea or vomiting, chest pain. Per telemetry: NSR in the 80s. Review of Systems Review of Systems: All systems reviewed & are unremarkable except as noted in HPI & below Physical Exam Constitutional: + obese; no acute distress Eyes: PERRL, conjunctivae normal, anicteric sclerae Respiratory: normal respiratory effort, lungs clear to auscultation Cardiovascular: RRR, no murmur, no edema Gastrointestinal (Abdomen): normal bowel sounds, soft, nontender, no hepatosplenomegaly Results & Data Results & Data ([facility]) Vital Signs (Past 12 Hours) Vital Signs Temp Pulse Pulse Resp BP Pulse Ox Pulse Ox 03/11/21 15:23 72 03/11/21 15:00 36.5 C 69 15 145/75 H 95 03/11/21 12:05 36.6 C 67 15 131/81 97 03/11/21 08:09 36.5 C 92 H 14 184/82 H 95 03/11/21 07:32 101 H 03/11/21 07:03 100 H 03/11/21 06:14 37.0 C 100 H 18 153/89 H 99 03/11/21 06:09 37.0 C 100 H 18 153/89 H 99 99 Resident Activity Tracking Resident Involvement: Resident Care Provided Care Provided: Adult [facility]
[2021-03-12] MEDS: CIPROFLOXACIN / D5W 400 MG/200 ML BAG IV SCH ×2 (03:13→15:47)
--- NOTE | 2021-03-12 03:18 | Billing Data ---
Date of Service March 12, 2021 Coding Level of Care Code 71402 Initial Inpt Care Lvl 3
[2021-03-12 07:29] LABS: Basophils # (auto) 0.02 K/uL (0-0.2); Basophils % (auto) 0.3 %; Eosinophils # (auto) 0.11 K/uL (0-0.5); Eosinophils % (auto) 1.4 %; Hematocrit (blood only) 34.4 % (37-47); Immature Granulocytes # (auto) 0.02 K/uL (0.00-0.02); Immature Granulocytes % (auto) 0.3 %; Lymphocytes # (auto) 2.37 K/uL (1.2-3.4); Lymphocytes % (auto) 31.1 %; Mean Corpuscular Hemoglobin 29.7 pg (25-34); Monocytes % (auto) 7.9 %; Neutrophils # (auto) 4.51 K/uL (1.4-6.5); Platelet Count 179 K/uL (130-400); RDW Coefficient of Variation 15.1 % (11.5-14.5); RDW Standard Deviation 51.3 fL (36.4-46.3); White Blood Count 7.63 K/uL (4.8-10.8)
--- NOTE | 2021-03-12 08:00 | Hospitalist Progress Note ---
Date of Service March 12, 2021 Assessment & Plan (1) Acute GI bleeding: Plan: 75F with PMHx Parkinson's disease (on carbidopa/levodopa), hypertension, obesity, diverticulosis, who p/w bloody diarrhea and CT evidence of colitis vs diverticulitis Bloody diarrhea -Etiology unclear at this time, though likely colitis given patient's medical history (vs diverticulitis) -GI consulted, plan to perform colonoscopy on Saturday; unclear if [place] be [facility] [place] [place] discharged by Saturday * N.p.o. * IV Cipro 400 mg twice daily * Flagyl 500 mg 3 times daily * Home sulfasalazine 500 mg daily * IV fluids Hypertension -Patient originally on atenolol 50 mg p.o. daily at home * Switch to metoprolol 50 mg p.o. daily (stop atenolol); will begin new regimen tomorrow. Parkinson's disease -Chronic; will manage as at home (on carbidopa/levodopa) -PT OT ordered Dispo: Med telemetry Code: Full code FEN/GI: Clear liquid DVT Prophylaxis: SCDs PT/OT: Ordered (2) Colitis: (3) Parkinson's disease: (4) Hypertension: Plan: 75 yo F Hx Parkinson's disease, HTN, obesity, diverticulosis admitted for diverticulitis and acute lower GI bleed. GI bleed, diverticulitis: Presented to the ER with abdominal discomfort/fullness and several episodes of bloody diarrhea. Noted to have large volume bloody diarrhea while in ER. Hgb on admission of 12.8; repeat ordered given several episodes of bloody diarrhea. CTAP noted to have mild diverticulitis/colitis, otherwise normal. GI consulted and appreciate recommendations. NPO at this time in the event of intervention, though suspect no colonoscopy at this time given risk of perforation. Patient has allergy to penicillins and Flagyl IV not available due to shortage. Cipro 400mg IV BID, Flagyl 500 mg PO TID ordered. Holding aspirin. Serial H/H ordered. HTN: Continue atenolol. Parkinson's disease: Continue carbidopa/levodopa. Code Status: FULL CODE FEN: NPO DVT ppx: SCDs, holding chemoprophylaxis given acute GIB Dispo: Telemetry Admission and Anticipated Discharge Date Admission Date: March 11, 2021 Results & Data Results & Data ([facility]) Vital Signs (Past 12 Hours) Vital Signs Temp Pulse Pulse Resp BP Pulse Ox 03/12/21 07:45 74 03/12/21 06:12 69 03/12/21 03:09 36.4 C L 70 20 145/83 H 96 03/11/21 23:15 36.4 C L 72 22 147/84 H 95
[2021-03-12] MEDS: metroNIDAZOLE 500 MG TAB PO SCH ×2 (08:16→14:15)
[2021-03-12] MEDS: CARBIDOPA/LEVODOPA 25/100MG TAB PO SCH ×3 (08:16→15:49)
[2021-03-12] MEDS: sulfaSALAzine 500 MG TABLET PO SCH (08:16)
[2021-03-12] MEDS: POTASSIUM CHLORIDE 10 MEQ TABCR PO SCH (08:17)
[2021-03-12] MEDS ORDERED: METOPROLOL SUCC 50MG EXT REL TAB PO SCH (09:00)
--- NOTE | 2021-03-12 16:10 | Discharge Summary ---
Date of Service March 12, 2021 Admission HPI Per Admitting Provider 75 yo F Hx Parkinson's disease, HTN, obesity, diverticulosis presents for several episodes of bloody diarrhea starting this evening. She denies SOB, chest pain, nausea, vomiting. Has not had bloody diarrhea like this in the past. In the ER patient noted to be hypertensive, temp 37.8 C. Hgb normal at 12.8, BMP normal, COVID 19 negative. CTAP showed mild diverticulitis vs. colitis. Given several large volume bloody BMs, hospitalist service was consulted for admission. Admission Exam Per Admitting Provider Constitutional: WD/WN, vitals as above obese Eyes: PERRL, conjunctivae normal, anicteric sclerae ENMT: external ear and nose normal, oropharynx normal Neck: normal visual inspection Respiratory: normal respiratory effort, lungs clear to auscultation Cardiovascular: RRR, no murmur, no edema Gastrointestinal (Abdomen): hyperactive bowel sounds abdomen mild diffuse tenderness to palpation, no rebound or guarding Musculoskeletal: no cyanosis or clubbing, extremities motor strength 5/5 Skin: no rashes, warm and dry Neurologic: AAOx3, normal speech. Bilateral UE, LE, and face without sensory or motor deficits Resting tremor in hands. Psychiatric: A+Ox3, euthymic affect Principal Diagnosis GI bleeding Discharge Exam Constitutional + obese; no acute distress Eyes PERRL, conjunctivae normal, anicteric sclerae Respiratory normal respiratory effort, lungs clear to auscultation Cardiovascular RRR, no murmur, no edema Gastrointestinal (Abdomen) normal bowel sounds, soft, nontender, no hepatosplenomegaly Discharge Data Allergies Allergy/AdvReac Type Severity Reaction Status Date / Time morphine Allergy Severe ANAPHYLAXIS Verified 03/11/21 01:33 ibuprofen Allergy Intermediate Triggers Verified 03/11/21 01:33 Ulcerative Colitis Penicillins Allergy Intermediate Rash Verified 03/11/21 01:33 adhesive AdvReac Mild RASH Verified 03/11/21 01:33 Consultations 03/11/21 02:59 ED Decision to Admit Stat 03/11/21 06:09 Consult Gastroenterology Routine Ordered Studies 03/11/21 01:09 CT abd pelvis IV con only Urgent Hospital Course (1) Acute GI bleedinF with PMHx Parkinson's disease (on carbidopa/levodopa), hypertension, obesity, diverticulosis, who p/w bloody diarrhea and CT evidence of colitis vs diverticulitis Bloody diarrhea -Etiology unclear at this time, though likely colitis given patient's medical history (vs diverticulitis) * N.p.o. * IV Cipro 400 mg twice dailychanged to p.o. Cipro 500 twice daily upon discharge for 5 days. * Flagyl 500 mg 3 times dailysent home for Flagyl 500 3 times daily for 5 days. * Home sulfasalazine 500 mg daily * Scheduled for outpatient colonoscopy to clearly ascertain if true colitis versus diverticulitis. Hypertension -Patient originally on atenolol 50 mg p.o. daily at home * Switched from atenolol 50 mg p.o. to metoprolol 50 mg p.o. daily on discharge Parkinson's disease -Chronic; will manage as at home (on carbidopa/levodopa) -PT OT ordered to stave off deconditioning (2) Colitis: (3) Parkinson's disease: (4) Hypertension: Total Time Total Time Spent Total Time Spent (In Minutes): <30 Discharge Plan Discharge Items Patient Disposition: Home - Self-Care Reason For Visit: GI BLEED, DIVERTICULITIS Discharge Diagnosis: GI bleed, colitis vs diverticulitis Activity: Per Instructions section Non-emergency contact: Primary Care Provider Call non-emergency contact if: you have any medication questions, your symptoms worsen, your pain is worsening and you have a fever Follow-up/Referrals: Shane Arcos MD [Physician] - (Please schedule for outpatient colonoscopy.) Cristina Silva MD [Primary Care Provider] - Diet: Regular Addtl Attending Provider Instructions: Dear Stephanie, You were admitted to the hospital for GI bleeding, or blood in your stool. You were treated with antibiotics and fluids while you recovered. Your bowel movements improved and your blood levels stabilized, so you are safe to be discharged home. A discharge summary will be sent to your primary care physician to ensure continuity of care. Please bring this discharge summary with you to your next office appointment so that your provider can review it at that time. Follow-up appointments: * Make a follow-up appointment with your PCP within the next week. It is very important that you follow up with them shortly after discharge from the hospital. * We have requested an appointment for a colonoscopy on an outpatient basis with Dr. Arcos. You should receive a phone call some time in the next week to schedule this. If you do not hear from the experience planning strategist, please reach out to Dr. Arcos's office at [phone]. * Keep all your follow-up appointments as already scheduled. If you cannot make an appointment, notify your provider. Medications: Your medication list has been reviewed and reconciled upon discharge to ensure accuracy and continuity of care. An updated list of all your medications is included with your hospital discharge paperwork. Please review this list closely, and make note of any changes. * We sent a new medication called Ciprofloxacin to your pharmacy. Take Ciprofloxacin 500 mg twice daily for 5 days. * We sent a new medication called Metronidazole, or Flagyl, to your pharmacy. Take Metronidazole 500 mg, three times daily for 5 days. Take your medications as instructed; do not skip a dose of your medicines. Make sure all of your doctors know every medicine you are taking (including flbl-yjh-opfodma medicines, vitamins, and supplements). Call your primary care provider before taking any new medicines (including pdts-obl-fxchzsa medicines, vitamins, and supplements), because some of these may interact with your current medications, or may make your symptoms worse. Tell your primary care provider if you cannot afford your medications. CONTACT YOUR PRIMARY CARE PROVIDER if you experience any of the following: * Bright red bloody stools * Sudden fatigue, or weakness * Difficulty following your treatment plan, or difficulty taking medications CALL 911 OR GO TO THE EMERGENCY DEPARTMENT if you experience any of the fo llowing: * Sudden, severe abdominal pain or nausea/vomiting * Severe chest pain, or chest pain that radiates (moves) to your jaw or arm * Sudden, severe shortness of breath or difficulty breathing Thank you for allowing us to participate in your care. Pending Studies at Discharge: No Stand-Alone Forms: My [facility] [employer] Smoking Cessation Medications and DC Order Prescriptions: New metronidazole 500 mg Tablet 500 mg PO TID 5 Days Qty: 15 RF: 0 metoprolol succinate 50 mg Tablet Extended Release 24 Hr 50 mg PO QAM 30 Days Qty: 30 RF: 0 ciprofloxacin [Cipro] 500 mg/5 mL suspension,microcapsule recon 500 mg PO BID 5 Days Qty: 50 RF: 0 Continued flaxseed oil 1,000 mg capsule 1,000 mg PO DAILY RF: 0 multivitamin with minerals [Multiple Vitamin-Minerals] tablet 1 tab PO DAILY RF: 0 sulfasalazine 500 mg tablet 500 mg PO DAILY RF: 0 aspirin 81 mg Tablet,Chewable 81 mg PO DAILY RF: 0 carbidopa-levodopa 25-100 mg tablet 2 tab PO AC RF: 0 potassium chloride 10 mEq capsule, extended release 10 meq PO BID RF: 0 cranberry 500 mg Capsule 500 mg PO DAILY RF: 0 glucosamine-chondroitin [Osteo Bi-Flex] 250-200 mg Tablet 1 tab PO DAILY RF: 0 Discontinued atenolol 50 mg tablet 50 mg PO DAILY RF: 0 Discharge Orders: Discharge Order (Routine); Ordered 03/12/21 Ordered By: Mark Levy Admission Data Admit Date/Time: 03/11/21 03:41 Attending Provider: Thien Parson Admit Provider: Sarah Beth Franco Primary Care Provider: Cristina Silva Other Providers: Titi Quiroga ; Shane Arcos Other Interventions: Discharge Summary Assessment (RN) Last Done: 03/12/21 16:13 Supervising Physician Co-Signing Physician Notes I personally examined the patient and verified all navarrete points of history and exam, discussed case, and agree with decision making with Dr Levy no further bloody bm feels good and feels up to going home. ok w getting cscope as outpt vitals noted nad heent nc at mmm breathing unlabored no accessory muscles good effort lgi bleeding -?diverticular, ?UC, ?other -bleeding appears to have stopped and is stable for home -for Cscope in near future otherwise as above Resident Activity Tracking Resident Involvement: Resident Care Provided Care Provided: Adult Hospital Medicine
--- NOTE | 2021-03-12 18:10 | Billing Data ---
Date of Service March 12, 2021 Coding Level of Care Code D/C DAY MANAGEMENT <30 MINS
--- NOTE | 2021-03-13 10:33 | Pharmacy Report ---
ED Pharmacist Progress Note - ED Pharmacist Progress Note Date of Service:: March 13, 2021 Notes:: Received a call from [email or web address] this AM. Patient discharged with a prescription for ciprofloxacin suspension which is unavailable. No other pharmacies in the area carry this. Per Dr. Levy -- ok to switch to cipro tabs (same instructions). Verbalized this change to Justine Herzog pharmacist ~ 1030 this AM.
== END 2021-03-12 16:59 | disposition home or self-care (01) ==
LOC: ED 00:58 → 2S 03:41 → SUATTDRO 03:41 → INTOOBSV 03:41 → 2S 05:16

== ENCOUNTER 2022-03-28 11:28 | Inpatient (IN) ==
--- NOTE | 2022-03-28 11:48 | Emergency Department Note ---
Impression & Plan Hypertensive urgency, Edema ED Provider Note NAME: AJ LEE AGE: 77 SEX: F : 1945 ARRIVES VIA: Walk-In INFORMANT: Patient ED PROVIDER(S): Thien Reyes DO CHIEF COMPLAINT: htn HPI: Patient is a 77-year-old female who presents ER for swelling in her bilater al lower extremities. This been going on for a week getting worse. She follow- up with her PCP was counseling referred and she had systolic pressures in the low 200s. She denies any headache or change in vision. No chest pain or shortness of breath. No nausea or vomiting but admits to diarrhea. No belly pain. No dysuria, urgency, or frequency. No other exacerbating remitting factors. PAST MEDICAL HISTORY:See Below PAST SURGICAL HISTORY:See Below FAMILY HISTORY:See Below SOCIAL HISTORY:See Below HOME MEDICATIONS:See Below ALLERGIES:See Below VITALS:See Below PHYSICAL EXAMINATION: GENERAL: Sitting up in bed, alert, well appearing, well nourished, no distress, non-toxic EYE EXAM: normal conjunctiva. PERRL and EOM's grossly intact. OROPHARYNX: no exudate, no erythema, lips, buccal mucosa, and tongue normal and mucous membranes are moist NECK: supple, no nuchal rigidity, no adenopathy, non-tender LUNGS: Clear to auscultation. Normal chest wall mechanics HEART: no murmurs, S1 normal and S2 normal ABDOMEN: abdomen soft, non-tender, normo-active bowel sounds, no masses, no rebound or guarding. UPPER EXTREMITIES: upper extremities are grossly normal. LOWER EXTREMITIES: Pitting edema bilateral lower extremities NEURO EXAM: Normal sensorium, cranial nerves II-XII grossly intact, normal speech, no gross weakness of arms, no gross weakness of legs. MEDICAL DECISION MAKING: Patient is a 77-year-old female with a past medical history of hypertension Parkinson's disease that presents to the ER referred by PCP for elevated blood pressure and swelling in the legs. She has pitting edema in the bilateral lower extremities. Blood pressure of 220. She was given IV labetalol. Pressures trended down to 170. IV was established blood work was obtained. Labs show no significant leukocytosis or anemia. BMP along with LFTs bilirubin and troponin was negative. Lipase unremarkable. UA was contaminated. COVID was negative. She was up to the bedside. She was discussed with hospitalist admitted for further work-up of hypertensive urgency and possible CHF although chest x-ray was clean. External records were reviewed Triage Nursing notes reviewed. Limited review of prior medical records performed Vital Signs: reviewed and remarkable for no significant abnormalities Differential diagnosis: Differential diagnoses includes but is not limited to pneumonia, bronchitis, COPD/Asthma exacerbation, pneumothorax, pulmonary embolism, congestive heart failure, acute coronary syndrome ER treatment provided: See below Diagnostics interpreted by me include EKG and cardiac monitoring as listed below: -Cardiac Monitoring: An order was placed for continuous cardiac monitoring. The monitor shows a rate of 80 with sinus rhythm. -ECG: Sinus rhythm rate of 79 Normal axis No PVCs QTc 458 -Laboratory studies:Interpreted by me as stated above in MDM and shown below. Imaging studies: Xrays: As interpreted by me: Portable AP upright 1 view of the chest shows no focal infiltrate CTs show: none Consultation(s): Discussed with Dr. Darin Caicedo in regards to your presentation work-up and further treatment Procedures:none Critical Care: None Past Med/Surg History Medical History (Updated 03/28/22 @ 15:56 by Thien Reyes DO) Arthritis Colitis Gait disturbance Uses cane/wheelchair for long distances HX: breast cancer s/p b/l mastectomy + radiation RUE limb restriction Hypertension Morbid obesity with BMI of 40.0-44.9, adult Parkinson disease Surgical History History of colonoscopy Colonoscopy (04/25/21): MAC at [facility]. No issues noted per post-op anesthesia progress note. History of conization of cervix History of tooth extraction Hx of bilateral mastectomy 2009 Family History Father Mother Diverticulitis Heart problem Brother Rheumatoid arthritis Heart failure COPD (chronic obstructive pulmonary disease) Sister Arthritis History of hysterectomy Grandmother (Paternal) Diabetes Grandmother (Maternal) Cancer Grandfather (Maternal) Cancer Other No family history of adverse response to anesthesia Social History Smoking Status: Former smoker Tobacco Type: Cigarettes Second Hand Exposure: No; Hx Alcohol Use: No Hx Substance Use: No Preferred Language: Martiniquais Communication Ability: Effective Transportation Dispatcher Required: No Beliefs That Will Affect Care: None Current Living Situation: Spouse Feels Safe at Home: Yes Assistive Devices: Cane and Glasses Allergies Allergies Allergy/AdvReac Type Severity Reaction Status Date / Time morphine Allergy Severe BP dropped Verified 02/14/22 14:53 severely ibuprofen Allergy Intermediate Triggers Verified 02/14/22 14:53 Ulcerative Colitis adhesive Allergy Mild Rash Verified 02/14/22 14:53 Penicillins Allergy Mild Rash Verified 02/14/22 14:53 Home Meds Home Medications Medication Instructions Recorded Confirmed sulfasalazine 500 mg tablet 500 mg PO QAM 01/22/19 03/28/22 potassium chloride 10 mEq 10 meq PO QPM 03/11/21 03/28/22 capsule,extended release Lactobacillus acidophilus 10 10,000 mmu cells PO QAM 03/21/21 03/28/22 billion cell capsule (Probiotic) Immunity Booster 1 tab PO BID 08/30/21 03/28/22 metoprolol succinate 50 mg 25 mg PO QAM 08/30/21 03/28/22 tablet,extended release 24 hr metoprolol succinate 50 mg 50 mg PO HS 08/30/21 03/28/22 tablet,extended release 24 hr Previous Rx's Medication Instructions Recorded carbidopa 25 mg-levodopa 100 mg 2 tab PO TID #540 tabs 09/26/21 tablet (Sinemet) Results & Data (ED) Vital Signs Vital Signs - 24 hr 03/28/22 11:31 03/28/22 15:59 Temperature 36.8 C Temperature Source Temporal Artery Scan Pulse Rate 82 82 Respiratory Rate 18 18 Blood Pressure 217/125 H 177/99 H Blood Pressure Mean 155 125 Pulse Oximetry 93 97 Oxygen Delivery Method Room Air Room Air Sepsis Recent Fever Within 48 Hours No Sepsis New/Unexplained Change in Mental Status No Sepsis Action Taken by Nursing No Action Required Laboratory Data 03/28/22 11:58 03/28/22 11:58 Lab Results 03/28/22 03/28/22 03/28/22 Range/Units 11:58 11:58 12:40 WBC 8.42 (4.8-10.8) K/ul RBC 4.39 (4.20-5.40) M/uL Hgb 13.0 (12.0-16.0) g/dl Hct 39.4 (37.0-47.0) % MCV 89.7 (80.0-100.0) fL MCH 29.6 (25.0-34.0) pg MCHC 33.0 (32.0-36.0) g/dL RDW Std Deviation 47.4 H (36.4-46.3) fL RDW Coeff of Laith 14.5 (11.5-14.5) % Plt Count 167 (130-400) K/uL MPV 11.5 (9.4-12.4) fL Immature Gran % (Auto) 0.2 % Neut % (Auto) 68.8 % Lymph % (Auto) 20.8 % [place]pin % (Auto) 8.7 % Eos % (Auto) 1.0 % Baso % (Auto) 0.5 % Neut # (Auto) 5.80 (1.40-6.50) K/uL Lymph # (Auto) 1.75 (1.2-3.4) K/uL [place]pin # (Auto) 0.73 H (0.11-0.59) K/uL Eos # (Auto) 0.08 (0-0.50) K/uL Baso # (Auto) 0.04 (0-0.2) K/uL Immature Gran # (Auto) 0.02 (0.01-0.20) K/uL Sodium 140 (136-145) mmol/L Potassium 3.6 (3.5-5.1) mmol/L Chloride 105 (98-107) mmol/L Carbon Dioxide 30 (21-32) mmol/L Anion Gap 5 (3-11) BUN 13 (6-23) mg/dl Creatinine 0.59 L (0.6-1.2) mg/dl Est Cr Clr Drug Dosing 105.1 ml/min Est GFR ( Amer) 103.9 ml/min Est GFR (Non-Af Amer) 89.7 ml/min BUN/Creatinine Ratio 22.0 H (10-20) Glucose 97 (70-99(Fasting)) mg/dl Calcium 9.4 (8.5-10.1) mg/dl Total Bilirubin 0.8 (0.2-1.0) mg/dl AST 12 L (13-39) U/L ALT < 3 L (7-52) U/L Alkaline Phosphatase 80 (34-104) U/L Troponin I High Sens 6.4 (0-14) pg/ml Total Protein 8.0 (6.0-8.3) gm/dl Albumin 4.2 (3.4-5.0) gm/dl Globulin 3.8 (2.5-4.0) gm/dl Albumin/Globulin Ratio 1.1 (0.9-2) Lipase 10 L (11-82) U/L Urine Color Urine Appearance (Clear) Urine pH (4.5-7.5) Ur Specific Savage (1.000-1.030) Urine Protein (Negative) Urine Glucose (UA) (Negative) Urine Ketones (Negative) Urine Blood (Negative) Urine Nitrite (Negative) Urine Bilirubin (Negative) Urine Urobilinogen (Negative) Ur Leukocyte Esterase (Negative) Urine WBC (Auto) (0-5) /hpf Urine RBC (Auto) (0-4) /hpf U Hyaline Cast (Auto) (0-5) /lpf U Epithel Cells (Auto) (0-5) /lpf Urine Bacteria (Auto) (Negative) Ur Random Creatinine mg/dl U Random Total Protein (0-11.9) mg/dl Protein/Creatinin Ratio (0-0.2) SARS-CoV-2, RNA, NAAT NEGATIVE (NEGATIVE) 03/28/22 03/28/22 Range/Units 14:11 14:11 WBC (4.8-10.8) K/ul RBC (4.20-5.40) M/uL Hgb (12.0-16.0) g/dl Hct (37.0-47.0) % MCV (80.0-100.0) fL MCH (25.0-34.0) pg MCHC (32.0-36.0) g/dL RDW Std Deviation (36.4-46.3) fL RDW Coeff of Laith (11.5-14.5) % Plt Count (130-400) K/uL MPV (9.4-12.4) fL Immature Gran % (Auto) % Neut % (Auto) % Lymph % (Auto) % [place] % (Auto) % Eos % (Auto) % Baso % (Auto) % Neut # (Auto) (1.40-6.50) K/uL Lymph # (Auto) (1.2-3.4) K/uL [place] # (Auto) (0.11-0.59) K/uL Eos # (Auto) (0-0.50) K/uL Baso # (Auto) (0-0.2) K/uL Immature Gran # (Auto) (0.01-0.20) K/uL Sodium (136-145) mmol/L Potassium (3.5-5.1) mmol/L Chloride (98-107) mmol/L Carbon Dioxide (21-32) mmol/L Anion Gap (3-11) BUN (6-23) mg/dl Creatinine (0.6-1.2) mg/dl Est Cr Clr Drug Dosing ml/min Est GFR ( Amer) ml/min Est GFR (Non-Af Amer) ml/min BUN/Creatinine Ratio (10-20) Glucose (70-99(Fasting)) mg/dl Calcium (8.5-10.1) mg/dl Total Bilirubin (0.2-1.0) mg/dl AST (13-39) U/L ALT (7-52) U/L Alkaline Phosphatase (34-104) U/L Troponin I High Sens (0-14) pg/ml Total Protein (6.0-8.3) gm/dl Albumin (3.4-5.0) gm/dl Globulin (2.5-4.0) gm/dl Albumin/Globulin Ratio (0.9-2) Lipase (11-82) U/L Urine Color Yellow Urine Appearance Turbid A (Clear) Urine pH 5.5 (4.5-7.5) Ur Specific Savage 1.015 (1.000-1.030) Urine Protein Negative (Negative) Urine Glucose (UA) Negative (Negative) Urine Ketones Negative (Negative) Urine Blood Trace H (Negative) Urine Nitrite Negative (Negative) Urine Bilirubin Negative (Negative) Urine Urobilinogen Negative (Negative) Ur Leukocyte Esterase 1+ H (Negative) Urine WBC (Auto) 1-5 (0-5) /hpf Urine RBC (Auto) 0-4 (0-4) /hpf U Hyaline Cast (Auto) 1-5 (0-5) /lpf U Epithel Cells (Auto) >30 H (0-5) /lpf Urine Bacteria (Auto) Negative (Negative) Ur Random Creatinine 63.8 mg/dl U Random Total Protein 17.1 H (0-11.9) mg/dl Protein/Creatinin Ratio 0.3 H (0-0.2) SARS-CoV-2, RNA, NAAT (NEGATIVE) Administered Medications Discontinued Medications Furosemide (Furosemide 40 Mg/4 Ml Vial) 40 mg IV NOW STA Stop: 03/28/22 13:15 Last Admin: 03/28/22 13:28 Dose: 40 mg Documented By: ALIDA Labetalol HCl (Labetalol Hcl Iv 5 Mg/Ml 20ml) 10 mg IV NOW STA Stop: 03/28/22 13:15 Last Admin: 03/28/22 13:28 Dose: 10 mg Documented By: LAIDA Co-signed By: MILLI Imaging Data Radiologist's Impression: Chest X-Ray 03/28/22 11:45 XR chest 1V portable HISTORY: Chest pain, nonspecific COMPARISON: None. FINDINGS: The cardiac silhouette is mildly enlarged. Mild interstitial prominence which is likely chronic. Otherwise, no focal lung consolidations to suggest a pneumonia. No evidence for pulmonary edema. No pleural effusions. No pneumothorax. IMPRESSION: Mild cardiomegaly. ACT 112: Negative or not required by law. Electronically signed by: Dimitrios Reese M.D. 03/28/2022 12:27 PM Discharge Plan Visit Data Chief Complaint: Referred by Doctor Stated Complaint: REF BY , BP IS OFF ED Provider: Thien Reyes Discharge Problem: Hypertensive urgency, Edema Forms Stand Alone Forms: My [facility] [place] [employer] Prescriptions Prescriptions: No Action sulfasalazine 500 mg tablet 500 mg PO QAM carbidopa-levodopa [Sinemet] 25-100 mg tablet 2 tab PO TID Qty: 540 1RF potassium chloride 10 mEq capsule, extended release 10 meq PO QPM Label Comments: IN AFTERNOON Probiotic 10 billion cell Capsule 10,000 mmu cells PO QAM metoprolol succinate 50 mg Tablet Extended Release 24 Hr 50 mg PO HS metoprolol succinate 50 mg Tablet Extended Release 24 Hr 25 mg PO QAM Immunity Booster 1 tab PO BID Referrals Referrals: Cristina Silva MD [Primary Care Provider] -
--- NOTE | 2022-03-28 12:28 | XRay Report ---
XR chest 1V portable HISTORY: Chest pain, nonspecific COMPARISON: None. FINDINGS: The cardiac silhouette is mildly enlarged. Mild interstitial prominence which is likely chr onic. Otherwise, no focal lung consolidations to suggest a pneumonia. No evidence for pulmonary edema . No pleural effusions. No pneumothorax. IMPRESSION: Mild cardiomegaly. ACT 112: Negative or not required by law. Electronically signed by: Dimitrios Reese M.D. 03/28/2022 12:27 PM
[2022-03-28 12:43] LABS: Basophils # (auto) 0.04 K/uL (0-0.2); Basophils % (auto) 0.5 %; Eosinophils # (auto) 0.08 K/uL (0-0.50); Hematocrit (blood only) 39.4 % (37.0-47.0); Immature Granulocytes # (auto) 0.02 K/uL (0.01-0.20); Immature Granulocytes % (auto) 0.2 %; Lymphocytes # (auto) 1.75 K/uL (1.2-3.4); Lymphocytes % (auto) 20.8 %; Mean Corpuscular Hemoglobin 29.6 pg (25.0-34.0); Mean Corpuscular Volume 89.7 fL (80.0-100.0); Mean Platelet Volume 11.5 fL (9.4-12.4); Monocytes # (auto) 0.73 K/uL (0.11-0.59); Monocytes % (auto) 8.7 %; Neutrophils % (auto) 68.8 %; Platelet Count 167 K/uL (130-400); RDW Coefficient of Variation 14.5 % (11.5-14.5); RDW Standard Deviation 47.4 fL (36.4-46.3); Red Blood Count 4.39 M/uL (4.20-5.40); White Blood Count 8.42 K/ul (4.8-10.8)
[2022-03-28 12:46] LABS: Anion Gap 5 (3-11); Blood Urea Nitrogen 13 mg/dl (6-23); Calcium 9.4 mg/dl (8.5-10.1); Carbon Dioxide 30 mmol/L (21-32); Chloride 105 mmol/L (98-107); Creatinine Clr Calc Pharmacy 105.1 ml/min; Est GFR (African American) 103.9 ml/min; Est GFR (Non-African American) 89.7 ml/min; Glucose 97 mg/dl (70-99(Fasting)); Potassium 3.6 mmol/L (3.5-5.1); Sodium 140 mmol/L (136-145)
[2022-03-28 12:50] LABS: Alanine Aminotransferase < 3 U/L (7-52); Albumin Globulin Ratio 1.1 (0.9-2); Albumin Level 4.2 gm/dl (3.4-5.0); Alkaline Phosphatase 80 U/L (34-104); Aspartate Aminotransferase 12 U/L (13-39); Bilirubin,Total 0.8 mg/dl (0.2-1.0); Globulin 3.8 gm/dl (2.5-4.0); Lipase 10 U/L (11-82)
[2022-03-28 12:51] LABS: Troponin I High Sensitivity 6.4 pg/ml (0-14)
[2022-03-28] MEDS ORDERED: FUROSEMIDE 40 MG/4 ML VIAL IV STA (13:14)
[2022-03-28] MEDS ORDERED: LABETALOL HCL IV 5 MG/ML 20ML IV STA (13:14)
--- NOTE | 2022-03-28 13:52 | History & Physical Report ---
Date of Service March 28, 2022 Assessment & Plan (1) Hypertensive urgency: Plan: -Admit to the PCU -The patient is currently afebrile, hypertensive with systolics in the 200's and stable on RA -Patient noted to be hypertensive with systolics in the 200's at her PCP office today, sent to the ED for further evaluation -She did take her am dose of metoprolol succinate prior to going to her PCP visit -Unclear etiology of her acute hypertension at this time but the differential includes nephrotic syndrome, untreated/undiagnosed sleep apnea, pulmonary HTN, or other cardiac abnormality -Her acute and severe BL LE swelling is concerning for possible nephrotic sy ndrome, LFTs are WNL so less likely to be a component of hepatitis or liver disease -She is currently asymptomatic with her BP, S/P 10 mg IV labetalol given while I was examining the patient -Will hold her metoprolol succinate for now and continue with IV labetalol until our initial workup is complete -Obtaining a UA with protein/cr ratio, BNP, and TTE -Will adjust antihypertensive regimen after the workup is complete -Monitor on tele and pulse oximetry -AM CBC, BMP, and mag (2) Lower extremity edema: Plan: -Symmetrical and has acutely progressed over the past week -Patient does have an increased sodium intake due to previous issues with hyponatremia -Will follow-up on initial workup as described in hypertensive urgency plan -Will start BL [place] stockings -S/P 40 mg IV lasix in the ED, will hold additional for now until the rest of her workup returns (3) Parkinson's disease: Plan: -Stable -Continue with short acting Sinemet TID -Monitor for dyskinesias (4) HX: breast cancer: Plan: -S/P BL mastectomy and radiation -Currently montoring and not on therapy (5) Colitis: Plan: -Patient is currently asymptomatic -Will hold home sulfasalazine for now as it can cause nephrotic syndrome Plan The patient was discussed with Dr. Caicedo at the time of the admission History of Present Illness Chief Complaint: HTN Primary Care Provider: Cristina Silva MD Stephanie is a 77 year old female with a PMH significant for Parkinson's disease, dyskinesia's from extended release Sinemet use, HTN, obesity, divertic ulosis with previous GI bleed, and gait disturbance who presented to the [facility] ED on 2/8/23 due to being hypertensive at her PCP's office today. In the ED the patient was found to be afebrile, hypertensive at 217/125, and stable on Ra. Labs were remarkable for a CBC WNL, stale cr at 0.59, stable electrolytes, LFTs WNL and pending covid screen. Chest xray was read as "Mild cardiomegaly.". Prior to admission the patient was given 40 mg IV lasix and 10 mg IV labetalol. At the time of the exam the patient was lying in bed in no acute distress, she was just receiving her IV labetalol as her previous IV site blew when they tried to give it earlier. She states that over the past week she has experienced significant BL LE swelling that has progressed rapidly. She denies a previous history of heart failure and does not believe that she has had a previous echo. She states that she normally will have a small amount of BL LE swelling but it usually resolved when she elevates her legs. She has been trying to elevate her legs but feels as though the swelling gets worse when she tries. She states that she went to her PCP appointment this am and then sent her to the ED when they saw her systolic BP in the 200's. She denies current headache, changes in vision, hearing, taste, and smell, chest pain, SOB, cough, abdominal pain, nausea, vomiting, diarrhea, dysuria hematuria, and recent trauma. When asked, she states that she has been told to increase her solute intake due to previously low sodium levels. She confirms that she has been tested previously for sleep apnea but was told she was negative. She does confirm that she snores at night. She confirms that she was taken off the extended release Sinemet and has been switched to short acting TID. She feels as though her gait abnormality has been improving since the switch. She denies any other recent medication changes. She did take her am dose of metoprolol prior to going to her PCP visit. Please refer to Dr. Caicedo's attestation for any changes to the treatment plan Allergies Allergy/AdvReac Type Severity Reaction Status Date / Time morphine Allergy Severe BP dropped Verified 02/14/22 14:53 severely ibuprofen Allergy Intermediate Triggers Verified 02/14/22 14:53 Ulcerative Colitis adhesive Allergy Mild Rash Verified 02/14/22 14:53 Penicillins Allergy Mild Rash Verified 02/14/22 14:53 Home Medications Medication Instructions Recorded Confirmed Type sulfasalazine 500 mg tablet 500 mg PO QAM 01/22/19 03/28/22 History potassium chloride 10 mEq 10 meq PO QPM 03/11/21 03/28/22 History capsule,extended release Lactobacillus acidophilus 10 10,000 mmu cells PO QAM 03/21/21 03/28/22 History billion cell capsule (Probiotic) Immunity Booster 1 tab PO BID 08/30/21 03/28/22 History metoprolol succinate 50 mg 25 mg PO QAM 08/30/21 03/28/22 History tablet,extended release 24 hr metoprolol succinate 50 mg 50 mg PO HS 08/30/21 03/28/22 History tablet,extended release 24 hr carbidopa 25 mg-levodopa 100 mg 2 tab PO TID #540 tabs 09/26/21 03/28/22 Rx tablet (Sinemet) Past Med/Surg History Medical History (Updated 03/28/22 @ 15:56 by Thien Reyes DO) Arthritis Colitis Gait disturbance Uses cane/wheelchair for long distances HX: breast cancer s/p b/l mastectomy + radiation RUE limb restriction Hypertension Morbid obesity with BMI of 40.0-44.9, adult Parkinson disease Surgical History History of colonoscopy Colonoscopy (04/25/21): MAC at [facility]. No issues noted per post-op anesthesia progress note. History of conization of cervix History of tooth extraction Hx of bilateral mastectomy 2009 Family History Father Mother Diverticulitis Heart problem Brother Rheumatoid arthritis Heart failure COPD (chronic obstructive pulmonary disease) Sister Arthritis History of hysterectomy Grandmother (Paternal) Diabetes Grandmother (Maternal) Cancer Grandfather (Maternal) Cancer Other No family history of adverse response to anesthesia Social History Smoking Status: Never smoker Tobacco Type: Cigarettes Second Hand Exposure: No; Do You Dip or Chew Tobacco: No; Hx Alcohol Use: No Hx Substance Use: No Preferred Language: Belgian Communication Ability: Effective Shingler Required: No Beliefs That Will Affect Care: None Current Living Situation: Spouse Other Information That Helps Us Care for You: No Feels Safe at Home: Yes Safety Concerns: Feels Safe At This Time Assistive Devices: None Review of Systems Review of Systems: Denies current fever, chills, headache, changes in vision, hearing, taste, and smell, chest pain, SOB, cough, abdominal pain, nausea, vomiting, diarrhea, hematemesis, melena, dysuria, hematuria, and recent falls. All systems have been reviewed and are otherwise negative. Physical Exam Physical Exam: Physical Exam: General: In no acute distress, stated age, chronically ill-appearing HEENT: Normocephalic, atraumatic, patient with masked facies consistent with her known Parkinson's disease, no scleral icterus, pupils around round, symmetrical, and reactive to light, dry mucus membranes, trachea midline, no thyromegaly Chest/Pulm: No respiratory distress, symmetrical chest expansion, clear breath sounds throughout Cardiac: RRR, no murmurs noted Abdomen: Negative for ascites and bruising, normoactive bowel sounds, soft, non-tender to palpation throughout Musculoskeletal: Symmetrical and without signs of acute trauma, upper and lower extremities with full ROM, no atrophy, spasticity, or flaccidity Extremities: Radial, dorsalis pedis, and posterior tibial pulses are intact and symmetrical, 3-4+ pitting edema in the BL LE's Skin: Warm, dry, no rashes , lesions, or scars noted Neuro: Alert and oriented to person, place, month, year, and president, no focal defects, CN II-XII tested and intact, no tremors noted Psych: No acute distress, calm and cooperative during the exam Results & Data Results & Data ([facility]) Vital Signs (Past 12 Hours) Vital Signs Temp Pulse Resp BP Pulse Ox O2 Del Method 03/28/22 11:31 36.8 C 82 18 217/125 H 93 Room Air Laboratory Results Abnormal lab results 03/28/22 03/28/22 Range/Units 11:58 11:58 RDW Std Deviation 47.4 H (36.4-46.3) fL [place] # (Auto) 0.73 H (0.11-0.59) K/uL Creatinine 0.59 L (0.6-1.2) mg/dl BUN/Creatinine Ratio 22.0 H (10-20) AST 12 L (13-39) U/L ALT < 3 L (7-52) U/L Lipase 10 L (11-82) U/L Diagnostic Findings Chest X-Ray 03/28/22 11:45 XR chest 1V portable HISTORY: Chest pain, nonspecific COMPARISON: None. FINDINGS: The cardiac silhouette is mildly enlarged. Mild interstitial prominence which is likely chronic. Otherwise, no focal lung consolidations to suggest a pneumonia. No evidence for pulmonary edema. No pleural effusions. No pneumothorax. IMPRESSION: Mild cardiomegaly. ACT 112: Negative or not required by law. Electronically signed by: Dimitrios Reese M.D. 03/28/2022 12:27 PM ECG Additional Comments: Normal sinus rhythm Normal ECG When compared with ECG of 01-SEP-2021 11:28, No significant change was found Code Status & VTE Plan Code Status Full code Supervising Physician Co-Signing Physician Notes I personally saw and examined the patient. I verified all navarrete points and agree with Jose Benítez PA-C with the following exceptions and/or additions: Suspect hypervolemic (mainly right sided CHF) due to uncontrolled hypertension due to being cautious treating because of her Parkinson's. Recommend sleep apnea testing however as outpatient. LFTs normal. Urine Pr/Cr ratio unremarkable - do not suspect contributing. IVC mildly dilated on TTE therefore will increase her antihypertensives with diuretics to help with this and her BP. Cautiously increase antihypertensives due to Parkison's therefore will d/c lisinopril and start furosemide 40mg IV daily with repeat BMP in AM. PG Care Time/CCT Total # of Minutes Spent Total Time Spent with Patient: Total time spent is greater than 50% in coordination of care (as documented) at patient's floor/unit and/or counseling patient: Coding [place] [address] INT INP/OBS CARE 3/75MIN Patient Type Established Medical Decision Making High Complexity Diagnoses Hypertensive urgency I16.0 Lower extremity edema R60.0 Parkinson's disease G20 HX: breast cancer Z85.3 Colitis K52.9
--- NOTE | 2022-03-28 14:17 | Electrocardiogram Report ---
Test Reason : Blood Pressure : / mmHG Vent. Rate : 079 BPM Atrial Rate : 079 BPM P-R Int : 204 ms QRS Dur : 086 ms QT Int : 400 ms P-R-T Axes : 067 031 034 degrees QTc Int : 458 ms Poor data quality, interpretation may be adversely affected Normal sinus rhythm Normal ECG When compared with ECG of 01-SEP-2021 11:28, No significant change was found Confirmed by Adebayo Martínez ([id number]) on 03/28/2022 2:17:43 PM Referred By: Marily Gross Confirmed By:Adebayo Martínez
[2022-03-28] MEDS ORDERED: LABETALOL HCL IV 5 MG/ML 20ML IV PRN (14:30)
[2022-03-28 14:39] LABS: Appearance Urine Turbid (Clear); Bacteria Urine Automated Negative (Negative); Bilirubin Urine Negative (Negative); Blood Urine Trace (Negative); Color Urine Yellow; Epithelial Cell Urine Auto >30 /lpf (0-5); Glucose Urine UA Negative (Negative); Ketones Urine Negative (Negative); Leukocyte Esterase Urine 1+ (Negative); Nitrite Urine Negative (Negative); Protein Urine Negative (Negative); RBC Urine Automated 0-4 /hpf (0-4); Specific Gravity Urine 1.015 (1.000-1.030); Urobilinogen Urine Negative (Negative); pH Urine 5.5 (4.5-7.5)
[2022-03-28 15:47] LABS: Total Protein Urine Random 17.1 mg/dl (0-11.9)
[2022-03-28 15:53] LABS: Creatinine Urine Random 63.8 mg/dl; Protein Creatinine Ratio Urine 0.3 (0-0.2)
--- NOTE | 2022-03-28 16:02 | XCELERA ---
[id number]
[2022-03-28] MEDS ORDERED: ENOXAPARIN 0.5 MG/KG SQ SCH (16:32)
[2022-03-28] MEDS ORDERED: lisinopril 5 MG TAB PO SCH (17:15)
[2022-03-28] MEDS: ENOXAPARIN INJ 60 MG/0.6 ML SYR SQ SCH (17:23)
[2022-03-28] MEDS: CARBIDOPA/LEVODOPA 25/100MG TAB PO SCH ×2 (17:23→20:02)
[2022-03-28] MEDS: POTASSIUM CHLORIDE 10 MEQ TABCR PO SCH (20:02)
[2022-03-28] MEDS ORDERED: METOPROLOL SUCC 50MG EXT REL TAB PO SCH (21:00)
[2022-03-29] MEDS: ACETAMINOPHEN 325 MG TAB PO PRN ×2 (01:52→20:46)
[2022-03-29 06:36] LABS: Hematocrit (blood only) 36.3 % (37.0-47.0); Hemoglobin 11.9 g/dl (12.0-16.0); Mean Corpuscular Hemoglobin 29.5 pg (25.0-34.0); Mean Corpuscular Hgb Conc 32.8 g/dL (32.0-36.0); Mean Corpuscular Volume 90.1 fL (80.0-100.0); Mean Platelet Volume 11.4 fL (9.4-12.4); Platelet Count 145 K/uL (130-400); RDW Coefficient of Variation 14.6 % (11.5-14.5); RDW Standard Deviation 47.7 fL (36.4-46.3); Red Blood Count 4.03 M/uL (4.20-5.40); White Blood Count 6.61 K/ul (4.8-10.8)
[2022-03-29 06:44] LABS: BUN Creatinine Ratio 23.5 (10-20); Creatinine Clr Calc Pharmacy 91.2 ml/min; Est GFR (African American) 99.2 ml/min; Est GFR (Non-African American) 85.6 ml/min; Potassium 3.7 mmol/L (3.5-5.1)
[2022-03-29] MEDS: CARBIDOPA/LEVODOPA 25/100MG TAB PO SCH ×3 (08:21→20:28)
[2022-03-29] MEDS: sulfaSALAzine 500 MG TABLET PO SCH (08:22)
[2022-03-29] MEDS ORDERED: METOPROLOL SUCC 25MG EXT REL TAB PO SCH (09:00)
[2022-03-29] MEDS ORDERED: FUROSEMIDE 40 MG/4 ML VIAL IV SCH (09:00)
--- NOTE | 2022-03-29 11:50 | Hospitalist Progress Note ---
Date of Service March 29, 2022 Assessment & Plan (1) Hypertensive urgency: Plan: -Patient admitted on account of elevated BP in her PCP office -Initial BP in the ER was 200's systolic -was started on Labetalol -Repeat BP this morning 167/97mmhg -Patient admits to labile BP's in the past, said PCP has been trying to control her BP -Will consult cardiology to help to help in mgt (2) (HFpEF) heart failure with preserved ejection fraction: Plan: ECHO showed grade 1 diastolic dysfunction, EF 55-60%. Elevated right ventricular pressure BNP less than 200, although her obesity could be confounding Has bilateral leg edema and a 6 pound weight gain in the past few months Continue Lasix Monitor I/O, daily weights Consult cardiology (3) Lower extremity edema: Plan: -Symmetrical and has acutely progressed over the past week -Patient does have an increased sodium intake due to previous issues with hyponatremia -Will follow-up on initial workup as described in hypertensive urgency plan (4) Parkinson's disease: Plan: -Stable -Continue with short acting Sinemet TID -Monitor for dyskinesias (5) HX: breast cancer: Plan: -S/P BL mastectomy and radiation -Currently montoring and not on therapy (6) Colitis: Plan: -Patient is currently asymptomatic -Will hold home sulfasalazine for now as it can cause nephrotic syndrome Plan continue hospitalization Admission and Anticipated Discharge Date Admission Date: March 28, 2022 Subjective patient seen and examined,says her legs are still swollen, but she is making good urine Review of Systems Review of Systems: All systems reviewed are negative, apart from the ones contained in the history. Physical Exam Physical Exam: The patient is awake, alert and oriented 3, well developed and well nourished, normocephalic and atraumatic, lying in bed and in no acute distress. HEENT--PERRL, EOMI, mucous membranes and oropharynx mildly dry Neck--supple. No JVD. No bruits. Thyroid normal, trachea midline, no jermain nopathy. Heart--normal S1 and S2. No murmurs, rubs or gallops. Lungs--clear bilaterally, no respiratory distress, no accessory muscle use. Abdomen--normal bowel sounds and soft. Mild epigastric and left sided abdominal pain Extremities--bilateral leg edema. Dermatologic--normal skin turgor, normal color, no abnormal lymph nodes, no rash. Neurologic--cranial nerves II through XII grossly intact. Rheumatologic--normal range of motion. Psychiatric--normal affect. Results & Data Results & Data ([facility]) Vital Signs (Past 12 Hours) Vital Signs Temp Pulse Resp BP Pulse Ox O2 Del Method 03/29/22 10:53 97.9 F 71 20 167/96 H 94 Room Air 03/29/22 07:09 98.2 F 75 20 179/102 H 97 Room Air 03/29/22 03:00 97.9 F 69 16 153/79 H 95 Room Air PG Care Time/CCT Total # of Minutes Spent Total Time Spent with Patient: Total time spent is greater than 50% in coordination of care (as documented) at patient's floor/unit and/or counseling patient: Coding Level of Care Code 06149 SUB INP/OBS CARE 2/35MIN Diagnoses Hypertensive urgency I16.0 (HFpEF) heart failure with preserved ejection fraction I50.30 Lower extremity edema R60.0 Parkinson's disease G20 HX: breast cancer Z85.3 Colitis K52.9 Time Spent (min) 35
[2022-03-29] MEDS: ENOXAPARIN INJ 60 MG/0.6 ML SYR SQ SCH (17:40)
--- NOTE | 2022-03-29 18:34 | Cardiology Consultation ---
Date of Consultation March 29, 2022 Assessment & Plan (1) Hypertensive urgency: (2) Labile hypertension: (3) Hypervolemia: (4) Lower extremity edema: (5) Parkinson's disease: Plan 77-year-old woman with Parkinson's disease and apparent history of orthostatic hypotension (common in Parkinson's patients due to both the disease and the medication) who presents with hypertensive urgency and increased leg edema. Currently, she appears euvolemic, likely she had mild volume overload secondary to sodium/salt related dietary indiscretion, she responded to a single dose of IV furosemide. Would recommend low sodium/salt diet initially, she may well not need a daily diuretic, which could contribute to orthostatic hypotension if she were overdiuresed. Rather, recommend a weight-based diuretic regimen where she has available furosemide 40 mg to take for weight gain of greater than 2 pounds in a day or greater than 5 pounds in a week. Could stop her IV diuretic currently. In regards to blood pressure, given her initial degree of marked hypertension, would be reasonable to transition from metoprolol to oral labetalol. However, will need to monitor orthostatic vital signs and perhaps allow some degree of permissive hypertension to avoid symptomatic orthostasis. At this point, would recommend stopping metoprolol and starting labetalol 100 mg p.o. twice daily. Will check orthostatics tomorrow and make further recommendations regarding discharge medications. Would also recommend having clonidine 0.1 mg PRN available for acute BP elevations, although often not well-tolerated as a maintenance drug it can serve well as a stopgap measure to avoid hypertensive urgency by allowing for PPN clonidine dose for elevated BPs (for example, systolic blood pressure greater than 180 mmHg or diastolic greater than 110 mmHg). Will continue to follow patient, once her BP shows good control (perhaps tomorrow by noon), she could be discharged home with outpatient cardiology follow-up. History of Present Illness Reason for Consultation: HTN, ?CHF Requesting Physician: Anatoliy Bautista MD Attending Physician: Anatoliy Bautista MD History of Present Illness 77-year-old woman with Parkinson's disease, labile hypertension, and morbid obesity who was admitted 03/28/2022 with hypertensive urgency (BP 217/125 mmHg in the PCPs office. Her home antihypertensive regimen consists of metoprolol succinate 50 mg in the evening and 25 mg in the morning. Due to marked blood pressure lability, with episodes of orthostatic lightheadedness, she notes that her primary care physician recommended that she "increase her salt intake". She has chronic mild lower extremity edema, but this markedly increased in the past week or so. She denies orthopnea, PND, chest pain, palpitations, presyncope, or syncope. Aside from her leg swelling, she had been feeling well when she went to see her primary care physician and was incidentally noted to be markedly hypertensive. At the time of my evaluation this afternoon, she was comfortable and had no somatic complaints at rest. Allergies Allergy/AdvReac Type Severity Reaction Status Date / Time morphine Allergy Severe BP dropped Verified 02/14/22 14:53 severely ibuprofen Allergy Intermediate Triggers Verified 02/14/22 14:53 Ulcerative Colitis adhesive Allergy Mild Rash Verified 02/14/22 14:53 Penicillins Allergy Mild Rash Verified 02/14/22 14:53 Home Medications Medication Instructions Recorded Confirmed Type sulfasalazine 500 mg tablet 500 mg PO QAM 01/22/19 03/28/22 History potassium chloride 10 mEq 10 meq PO QPM 03/11/21 03/28/22 History capsule,extended release Lactobacillus acidophilus 10 10,000 mmu cells PO QAM 03/21/21 03/28/22 History billion cell capsule (Probiotic) Immunity Booster 1 tab PO BID 08/30/21 03/28/22 History metoprolol succinate 50 mg 25 mg PO QAM 08/30/21 03/28/22 History tablet,extended release 24 hr metoprolol succinate 50 mg 50 mg PO HS 08/30/21 03/28/22 History tablet,extended release 24 hr carbidopa 25 mg-levodopa 100 mg 2 tab PO TID #540 tabs 09/26/21 03/28/22 Rx tablet (Sinemet) Patient History Medical History Arthritis Breast cancer Colitis Gait disturbance Uses cane/wheelchair for long distances HX: breast cancer s/p b/l mastectomy + radiation RUE limb restriction Hypertension Morbid obesity with BMI of 40.0-44.9, adult Parkinson disease Postmenopausal bleeding Thickened endometrium Vulvar cyst Surgical History History of colonoscopy Colonoscopy (04/25/21): MAC at [facility]. No issues noted per post-op anesthesia progress note. History of conization of cervix History of tooth extraction Hx of bilateral mastectomy 2009 Family History Father Mother Diverticulitis Heart problem Brother Rheumatoid arthritis Heart failure COPD (chronic obstructive pulmonary disease) Sister Arthritis History of hysterectomy Grandmother (Paternal) Diabetes Grandmother (Maternal) Cancer Grandfather (Maternal) Cancer Other No family history of adverse response to anesthesia Social History Smoking Status: Never smoker Tobacco Type: Cigarettes Second Hand Exposure: No; Do You Dip or Chew Tobacco: No; Hx Alcohol Use: No Hx Substance Use: No Preferred Language: Trinidadian Communication Ability: Effective Airworthiness Inspector Required: No Beliefs That Will Affect Care: None Current Living Situation: Spouse Other Information That Helps Us Care for You: No Feels Safe at Home: Yes Safety Concerns: Feels Safe At This Time Assistive Devices: Cane Physical Exam Physical Exam: No distress. Most recent BP 171/70 mmHg. Pulse 80 bpm and regular. Skin: no ecchymoses or generalized lesions. HEENT: unremarkable. Neck: Jugular venous pulse not obviously elevated but shows increased respiratory variation, no carotid bruits. Lungs: Restricted excursion due to obesity, generally clear. She does have a mildly labored respiratory pattern without obvious accessory muscle use. Cardiac: regular rhythm, normal S1, mildly increased pulmonic closure sound, no murmur. Abdomen: benign. Extremities: 1+ pretibial edema, brisk dorsalis pedis pulses, good capillary refill. Neurologic: normal affect and conversation, nonfocal. Results & Data ([facility]) Vital Signs (Past 12 Hours) Vital Signs Temp Pulse Resp BP Pulse Ox O2 Del Method 03/29/22 15:36 98.4 F 79 19 171/71 H 94 Room Air 03/29/22 10:53 97.9 F 71 20 167/96 H 94 Room Air 03/29/22 07:09 98.2 F 75 20 179/102 H 97 Room Air Laboratory Results Normal electrolytes, BUN 16, creatinine 0.68. BNP 174 (normal is 0100). High-sensitivity troponin 6.4. Diagnostic Findings ECG showed sinus rhythm at 79 bpm and was completely unremarkable. Chest x-ray showed no acute process. Echocardiogram showed normal LV systolic function (EF 55 to 60%), moderate LVH with grade 1 diastolic dysfunction, mild MR with moderately dilated LA, moderate pulmonary hypertension and mildly dilated inferior vena cava. PG Care Time/CCT Total # of Minutes Spent Total Time Spent with Patient: Total time spent is greater than 50% in coordination of care (as documented) at patient's floor/unit and/or counseling patient: Coding Level of Care Code INP/OBS CONSULT LVL 4, 60 MIN Diagnoses Hypertensive urgency I16.0 Labile hypertension R09.89 Hypervolemia E87.70 Lower extremity edema R60.0 Parkinson's disease G20
[2022-03-29] MEDS ORDERED: cloNIDine HCL 0.1 MG TAB PO PRN (19:56)
[2022-03-29] MEDS: POTASSIUM CHLORIDE 10 MEQ TABCR PO SCH (20:28)
[2022-03-29] MEDS: LABETALOL HCL 100 MG TAB PO SCH (20:36)
[2022-03-30 06:17] LABS: Hematocrit (blood only) 37.1 % (37.0-47.0); Hemoglobin 12.1 g/dl (12.0-16.0); Mean Corpuscular Hemoglobin 29.2 pg (25.0-34.0); Mean Corpuscular Hgb Conc 32.6 g/dL (32.0-36.0); Mean Corpuscular Volume 89.6 fL (80.0-100.0); Mean Platelet Volume 11.7 fL (9.4-12.4); Platelet Count 149 K/uL (130-400); RDW Coefficient of Variation 14.7 % (11.5-14.5); RDW Standard Deviation 48.4 fL (36.4-46.3); Red Blood Count 4.14 M/uL (4.20-5.40)
[2022-03-30 06:40] LABS: Potassium 3.5 mmol/L (3.5-5.1)
[2022-03-30 06:46] LABS: BUN Creatinine Ratio 24.3 (10-20); Creatinine Clr Calc Pharmacy 83.8 ml/min; Est GFR (African American) 91.9 ml/min; Est GFR (Non-African American) 79.3 ml/min
[2022-03-30] MEDS: sulfaSALAzine 500 MG TABLET PO SCH (08:07)
[2022-03-30] MEDS: LABETALOL HCL 100 MG TAB PO SCH (08:07)
[2022-03-30] MEDS: CARBIDOPA/LEVODOPA 25/100MG TAB PO SCH ×2 (08:07→13:33)
--- NOTE | 2022-03-30 12:38 | Cardiology Progress Note ---
Date of Service March 30, 2022 Assessment & Plan (1) Hypertensive urgency: (2) Labile hypertension: (3) Hypervolemia: (4) Lower extremity edema: (5) Parkinson's disease: Plan Doing well overall. No major orthostasis on exam is reassuring, less likely BP management will be complicated. Discharge on Labetalol 100 mg BID, can titrate further as outpatient if necessary. Add clonidine 0.1 mg as a PRN med for acute/severe BP elevations (e.g. (SBP>180 mmHg or DBP>110 mmHg) Appears euvolemic, use weight based diuretic regimen to maintain current volume status. Follow-up with Margie Ramirez PA-C in [facility] in 1-2 weeks to reassess volume status, with me in 3-4 weeks. Admission and Anticipated Discharge Date Admission Date: March 29, 2022 Subjective Feel well in general. Mild lightheadedness walking to BR, otherwise no further orthostatic lightheadedness. No CP, SOB, or other complaints. BP improved overall. BP by MD 140 mmHg by palpation, drops to only 130 mm Hg upon standing (no symptoms). Physical Exam Physical Exam: No distress. BP as noted in HPI. Pulse 80 bpm and regular. Skin: no ecchymoses or generalized lesions. HEENT: unremarkable. Neck: Jugular venous pulse not obviously elevated but shows increased respiratory variation, no carotid bruits. Lungs: Restricted excursion due to obesity, generally clear. She does have a mildly labored respiratory pattern without obvious accessory muscle use. Cardiac: regular rhythm, normal S1, mildly increased pulmonic closure sound, no murmur. Abdomen: benign. Extremities: 1+ pretibial edema, brisk dorsalis pedis pulses, good capillary refill. Neurologic: normal affect and conversation, nonfocal. Results & Data ([facility]) Vital Signs (Past 12 Hours) Vital Signs Temp Pulse Pulse Resp BP Pulse Ox O2 Del Method 03/30/22 12:26 97.7 F 77 18 138/53 L 92 Room Air 03/30/22 11:20 97.9 F 75 18 166/94 H 94 03/30/22 07:20 Room Air 03/30/22 07:36 78 03/30/22 07:00 97.9 F 75 18 166/94 H 94 Room Air 03/30/22 03:41 98.1 F 86 19 168/80 H 96 Room Air Laboratory Results Normal electrolytes, BUN 18, Cr 1.2. PG Care Time/CCT Total # of Minutes Spent Total Time Spent with Patient: Total time spent is greater than 50% in coordination of care (as documented) at patient's floor/unit and/or counseling patient: Coding Level of Care Code 29653 SUB INP/OBS CARE 3/50MIN Diagnoses Hypertensive urgency I16.0 Labile hypertension R09.89 Hypervolemia E87.70 Lower extremity edema R60.0 Parkinson's disease G20
--- NOTE | 2022-03-30 14:29 | Discharge Summary ---
Date of Service March 30, 2022 Admission HPI Per Admitting Provider Stephanie is a 77 year old female with a PMH significant for Parkinson's disease, dyskinesia's from extended release Sinemet use, HTN, obesity, diverticulosis with previous GI bleed, and gait disturbance who presented to the [facility] ED on 03/28/22 due to being hypertensive at her PCP's office today. In the ED the patient was found to be afebrile, hypertensive at 217/125, and stable on Ra. Labs were remarkable for a CBC WNL, stale cr at 0.59, stable electrolytes, LFTs WNL and pending covid screen. Chest xray was read as "Mild cardiomegaly.". Prior to admission the patient was given 40 mg IV lasix and 10 mg IV labetalol. At the time of the exam the patient was lying in bed in no acute distress, she was just receiving her IV labetalol as her previous IV site blew when they tried to give it earlier. She states that over the past week she has experienced significant BL LE swelling that has progressed rapidly. She denies a previous history of heart failure and does not believe that she has had a previous echo. She states that she normally will have a small amount of BL LE swelling but it usually resolved when she elevates her legs. She has been trying to elevate her legs but feels as though the swelling gets worse when she tries. She states that she went to her PCP appointment this am and then sent her to the ED when they saw her systolic BP in the 200's. She denies current headache, changes in vision, hearing, taste, and smell, chest pain, SOB, cough, abdominal pain, nausea, vomiting, diarrhea, dysuria hematuria, and recent trauma. When asked, she states that she has been told to increase her solute intake due to previously low sodium levels. She confirms that she has been tested previously for sleep apnea but was told she was negative. She does confirm that she snores at night. She confirms that she was taken off the extended release Sinemet and has been switched to short acting TID. She feels as though her gait abnormality has been improving since the switch. She denies any other recent medication changes. She did take her am dose of metoprolol prior to going to her PCP visit. Principal Diagnosis Acute heart failure with preserved EF Discharge Exam The patient is awake, alert and oriented 3, well developed and well nourished, normocephalic and atraumatic, lying in bed and in no acute distress. HEENT--PERRL, EOMI, mucous membranes and oropharynx mildly dry Neck--supple. No JVD. No bruits. Thyroid normal, trachea midline, no adenopathy. Heart--normal S1 and S2. No murmurs, rubs or gallops. Lungs--clear bilaterally, no respiratory distress, no accessory muscle use. Abdomen--normal bowel sounds and soft. Mild epigastric and left sided abdominal pain Extremities--bilateral leg edema. Dermatologic--normal skin turgor, normal color, no abnormal lymph nodes, no rash. Neurologic--cranial nerves II through XII grossly intact. Rheumatologic--normal range of motion. Psychiatric--normal affect. Discharge Data Allergies Allergy/AdvReac Type Severity Reaction Status Date / Time morphine Allergy Severe BP dropped Verified 02/14/22 14:53 severely ibuprofen Allergy Intermediate Triggers Verified 02/14/22 14:53 Ulcerative Colitis adhesive Allergy Mild Rash Verified 02/14/22 14:53 Penicillins Allergy Mild Rash Verified 02/14/22 14:53 Consultations 03/28/22 13:14 ED Decision to Admit Stat 03/29/22 10:05 Consult Cardiology Routine Hospital Course (1) Hypertensive urgency: -Patient admitted on account of elevated BP in her PCP office -Initial BP in the ER was 200's systolic -was started on Labetalol -Repeat BP this morning 138/53mmhg -Patient admits to labile BP's in the past, said PCP has been trying to control her BP -Cardiology started Labetalol 100mg BID -PRN Clonidine 0.1mg for SBP>180mmhg (2) (HFpEF) heart failure with preserved ejection fraction: Acute heart failure with preserved EF ECHO showed grade 1 diastolic dysfunction, EF 55-60%. Elevated right ventricular pressure BNP less than 200, although her obesity could be confounding Has bilateral leg edema and a 6 pound weight gain in the past few months Continue Lasix, discharge on PRN Lasix 20mg for 2 pound weight gain in a day or 5 pound weight gain in a week Monitor I/O, daily weights (3) Lower extremity edema: -Symmetrical and has acutely progressed over the past week -Patient does have an increased sodium intake due to previous issues with hyponatremia -Will follow-up on initial workup as described in hypertensive urgency plan (4) Parkinson's disease: -Stable -Continue with short acting Sinemet TID -Monitor for dyskinesias (5) HX: breast cancer: -S/P BL mastectomy and radiation -Currently montoring and not on therapy (6) Colitis: -Patient is currently asymptomatic -Will hold home sulfasalazine for now as it can cause nephrotic syndrome Plan continue hospitalization Total Time Total Time Spent Total Time Spent (In Minutes): 35 Discharge Plan Discharge Items Patient Disposition: Home - Self-Care Reason For Visit: HTN Discharge Diagnosis: HTN Urgency, Acute CHF wpEF Activity: Resume your previous activity Non-emergency contact: Primary Care Provider and Gm Call non-emergency contact if: you have any medication questions and your symptoms worsen Follow-up/Referrals: Cristina Silva MD [Primary Care Provider] - Cheryl Ramirez PA-C [Physician Organizational Consultant] - 04/06/22 10:00 am Diet: Low Sodium (2gm) Addtl Attending Provider Instructions: please make appointment to follow up with cardiology and heart failure clinic Take lasix 20m if you gain 2 pounds of weight in a day or 5 pounds in a week Take Clonidine 0.1mg for systolic Blood Pressure above 180mmhg Pending Studies at Discharge: No Stand-Alone Forms: My [facility] [employer], Smoking Cessation Medications and DC Order Prescriptions: New clonidine HCl 0.1 mg Tablet 0.1 mg PO Q12H PRN (Reason: hypertensive emergency, SBP>180) 30 Days Qty: 60 0RF labetalol 100 mg Tablet 100 mg PO BID 30 Days Qty: 60 0RF furosemide [Lasix] 20 mg tablet 20 mg PO DAILY PRN (Reason: edema) Qty: 30 0RF Continued sulfasalazine 500 mg tablet 500 mg PO QAM carbidopa-levodopa [Sinemet] 25-100 mg tablet 2 tab PO TID Qty: 540 1RF potassium chloride 10 mEq capsule, extended release 10 meq PO QPM Label Comments: IN AFTERNOON Probiotic 10 billion cell Capsule 10,000 mmu cells PO QAM Immunity Booster 1 tab PO BID Discontinued metoprolol succinate 50 mg Tablet Extended Release 24 Hr 50 mg PO HS metoprolol succinate 50 mg Tablet Extended Release 24 Hr 25 mg PO QAM Discharge Orders: Discharge Order (Routine); Ordered 03/30/22 Ordered By: Anatoliy Bautista Discharge Order- CHF (Routine); Ordered 03/30/22 Ordered By: Anatoliy Bautista Admission Data Admit Date/Time: 03/29/22 14:11 Attending Provider: Anatoliy Bautista Admit Provider: Darin Caicedo Primary Care Provider: Cristina Silva Other Providers: Darin Caicedo ; Adebayo Martínez Other Interventions: Discharge Summary Assessment (RN) Last Done: 03/30/22 11:20 Coding Level of Care Code HOSP INP/OBS DISCH >30 MIN Diagnoses Hypertensive urgency I16.0 (HFpEF) heart failure with preserved ejection fraction I50.30 Lower extremity edema R60.0 Parkinson's disease G20 HX: breast cancer Z85.3 Colitis K52.9 Time Spent (min) 35
== END 2022-03-30 14:11 | disposition home or self-care (01) | DRG 291 ==
LOC: 4W 11:28 → ED 11:28 → SUATTDRO 13:50 → 4W 17:46